=== PATIENT | male | born 1945 | race Caucasian/White ===

== ENCOUNTER → 2018-03-06 13:20 | Outpatient (BNVA) | payer MEDICARE, OTHER, SELFPAY | PROVIDERS: Visit Provider Student in an Organized Health Care Education/Training Program | DX: M17.11 Unilateral primary osteoarthritis, right knee (principal); M17.12 Unilateral primary osteoarthritis, left knee | CPT/HCPCS: 20610; 99202; 99214; J1040 ==

== ENCOUNTER 2018-04-14 08:52 | Outpatient (CLI) | payer MEDICARE, OTHER, SELFPAY ==
[2018-04-14 11:04] LABS: HGB 16.8 g/dL (13.5-17.5); Mean Corp. HGB Concentration 34.3 g/dL (32.0-36.0); Mean Corpuscular Hemoglobin 31.1 pg (27.0-33.0); Mean Corpuscular Volume 90.6 fL (80-95); Mean Platelet Volume 10.2 fL (8.0-11.0); Platelet Count 175 x1000/uL (130-400); RBC 5.41 m/cumm (4.50-6.00); RBC Distribution Width 14.1 % (11.8-14.1); White Blood Cell Count 5.69 k/cumm (4.4-10.8)
[2018-04-14 11:36] LABS: Anion Gap 7.4 mmol/L (3-11); BUN 20 mg/dL (7-18); CO2 30.6 mmol/L (21.0-32.0); CREATININE 1.26 mg/dL (0.70-1.30); Calcium 8.9 mg/dL (8.5-10.1); Chloride 103 mmol/L (98-107); Estimated GFR 55.94 (mL/min/1.73m2); Glucose 105 mg/dL (70-100); Potassium 3.7 mmol/L (3.5-5.1); Sodium 141 mmol/L (136-145)
== END 2018-04-14 09:12 ==
PROVIDERS: PCP Family Medicine; Visit Provider Student in an Organized Health Care Education/Training Program
DX: M25.561 Pain in right knee (principal); M17.11 Unilateral primary osteoarthritis, right knee; I10 Essential (primary) hypertension; K21.9 Gastro-esophageal reflux disease without esophagitis; R56.9 Unspecified convulsions; Z01.818 Encounter for other preprocedural examination
CPT/HCPCS: 36415; 80048; 85027

== ENCOUNTER 2018-04-20 10:27 | Inpatient (IN) | payer MEDICARE, OTHER, SELFPAY ==
[2018-04-20] VITALS (11 sets, daily range): BP systolic 104–154; BP diastolic 54–92; PULSE 64–97; RESP 14–21; TEMP 35.9–37.7; O2SAT 92–100
[2018-04-20] MEDS: Gabapentin 300 MG CAP PO ×2 (11:02→22:15)
[2018-04-20] MEDS: oxyCODONE-CR 10 MG TABCR PO (11:02)
[2018-04-20] MEDS: Acetaminophen 500 MG TAB 1000 MG PO ×2 (11:02→19:20)
[2018-04-20] MEDS: Celecoxib 200 MG CAP 400 MG PO (11:02)
[2018-04-20] MEDS: Lactated Ringers 1,000 ML 80 ML IV ×2 (11:28→15:54)
[2018-04-20] MEDS: Bupivacaine 0.25% Pres-Free 30 ML VIAL (13:28)
[2018-04-20] MEDS: Normal Saline 50 ML (13:28)
[2018-04-20] MEDS: Ketorolac 30 MG/ML VIAL (13:28)
[2018-04-20] MEDS: Bupivacaine LIPOSOME/PF 133 MG/10 ML VIAL IJ (13:44)
[2018-04-20] MEDS: Normal Saline Flush 10 ML SYR IV (16:41)
--- NOTE | 2018-04-20 16:54 | W.PM.OP ---
Date of service: 04/20/18 Time of Service: 16:55 Operative Note DATE OF PROCEDURE: 04/20/18 PRE-OP DIAGNOSIS: Right Knee Arthritis POST-OP DIAGNOSIS: same PROCEDURE: Right Total Knee Arthroplasty with Intraoperative Navigation SURGEON: Lyle Almanzar UNDERGROUND UTILITY LOCATOR: Reema Coles ANESTHESIA: regional and spinal ESTIMATED BLOOD LOSS: 150 PATHOLOGY: none sent TOURNIQUET TIME: 31 COMPLICATIONS: None Patient was transported to: PACU Patient's condition: stable Implants: 1. Depuy Attune Posterior Stabilized Femoral Component, Size 7 2. Depuy Attune Fixed Platform Tibial Component, Size 6 3. Depuy Attune 7 x 8 mm fixed, Stabilized Poly 4. Depuy Attune Patellar Component, Size 35 Indications: I have seen Alonso in clinic for symptoms of knee arthritis, confirmed with radiographic findings. He has exhausted nonoperative methods and was having significant limitations in daily function and desired better function and less pain. I discussed the technical details of a knee replacement. I explained the risks of the procedure to include, but not limited to, bleeding, infection, pain, stiffness, fracture, damage to nerves and vessels, damage to muscles and tendons, loosening, need for repeat procedure, blood clot and cardiopulmonary demise. Despite these risks, Alonso elected to proceed. Findings: There was significant signs of arthritis throughout the knee. Procedure Description: Alonso was greeted in the preoperative holding area where the correct side was identified and marked. The consent was reviewed with the patient and signed. The history and physical was updated. All questions were answered. Preoperative mediacations were administered: Acetaminophen 1000mg, Celebrex 400mg, Gabapentin 300mg, and Oxycontin 10mg. An adductor canal block was then administered by the anesthesia team in the PACU. Alonso was taken back to the operating room. A spinal anesthestic was then administered. The patient was placed into the supine position on the operating room table. A nonsterile tourniquet was placed high onto the leg but only used for cementing. Posts were placed for positioning during the procedure. All bony prominences were well padded. Prophylactic antibiotics in the form of cefazolin were administered. 1g of Tranxemic Acid was given intravenously within 30 minutes of incision. The right leg was then prepped with Chloraprep and draped in a standard fashion with impervious stockinette and extremity drape with Iodine impregnated skin protection. A timeout to confirm correct identity, side and site, procedure, allergies, anesthesia, and medical concerns was performed. With the knee in some flexion, a midline incision was made overlying the knee. Full thickness skin flaps were raised once the extensor mechanism was encountered. These were raised medially and laterally. Any bleeding was controlled with electrocautery. Once the extensor mechanism was fully exposed, a medial parapatellar arthrotomy was performed in a flexed position. All bleeding from the arthrotomy and the geniculate arteries was coagulated. A medial subperiosteal peel was performed with electrocautery to the midcoronal plane. Due to the significant varus deformity the entire medial tibial plateau was exposed. The fat pad was removed while keeping the patellar tendon protected. The anterior distal femur synovium was removed for later visualization. The ACL and PCL were resected and the anterior horn of the lateral meniscus was transected. The knee was then flexed with the patella everted. Large osteophytes from the tibia were removed. Large osteophytes from the femur were removed. A single starting pin was then placed 1cm anterior to the PCL insertion and the notch in the direction of the femoral head. The OrthoAlign device was applied over the pin. It was oriented to be in line with the epicondylar axis and the trochlear groove. It was then pinned into place. The navigation computer was then turned on and calibrated. The distal femur cut was set at 0 degrees varus/valgus and 2.5 degrees flexion. The distal femur cutting guide then was positioned for a 9mm cut. The distal femur was cut with an oscillating saw while protecting the soft tissues. The tibia was then addressed. The OrthoAlign device was placed over the tibial tubercle and medial tibia and secured into position. Once again, OrthoAlign was calibrated and then set for a 0 degree varus/valgus cut and 3 degrees of posterior slope. With this locked into position, the cut thickness stylus was used to assess cut thickness. The medial side, most involved side, was set for a 4mm cut. This was then held in position and pinned into place with 2 additional pins and a cross pin for stability. The medial and lateral collateral ligaments were protected and the cut was performed. With this completed, it was assessed and noted to be of appropriate dimensions. The guide and OrthoAlign was removed. A spacer block was inserted and the knee was brought into extension. The 7 mm spacer block provided full extension, without hyperextension and with stability of both the medial and lateral collateral ligaments was assessed. The pins from the femur and the tibia were then removed. The distal femur was then sized. The anterior stylus was placed onto the lateral ridge of the anterior femur. This indicated a size 6 femur. The external rotation of the guide was adjusted to 3 degrees to match the epicondylar axis, perpendicular to Angelo?s line. The 4-in-1 cutting guide was the placed. The posterior medial femur cut was evaluated and appeared of good thickness. The spacer block was inserted underneath the cutting guide and stability was confirmed in 90 degrees of flexion. An lisandra wing was used to confirm appropriate position of the anterior cut to avoid notching. This cutting guide was ensured to be flush on the cut surface and then pinned into place with headed pins. While protecting the soft tissues, quad tendon, and collateral ligaments, the anterior and posterior cuts were performed with a saw. The central two pins were removed and the posterior and anterior chamfers were cut next. The notch-cutting guide was placed. This was pinned to lateralize the femoral component as much as possible while keeping it flush on the cut surface. This was then pinned into position. A reciprocating saw was used to make the notch cut. A rasp smoothed the cut surfaces. A trial posterior stabilized femoral component was then inserted, impacted down to the cut surfaces, and the lug holes were drilled. A provisional trial tibial component was placed and the knee was brought through range of motion. The polyethylene was trialed until there was good flexion and extension with excellent stability to the medial and lateral collaterals. The patella was tracking without thumbs. The tibial cut surface was fully exposed. The medial and lateral menisci were removed. The tibia was then sized as a 6. The tibia had been previously marked during trialing to correspond to the center of the tibial component to help with rotation. The trial was aligned to this porsche, approximately rotated to the medial 1/3rd of the tibial tubercle. The trial was pinned into place. The tibia was prepared with a reamer and a keel punch. The knee was then brought into extension and the patella was measured as 25 mm. Using the patellar clamp and cut guide, this was resected to a flat surface with at least 13mm of thickness remaining. The size 35 mm patella fit the best. This was oriented and then clamped into position. The lugs were drilled. The trial components were removed. The final components, except for the polyethylene were opened on the back table. The periosteal and capsular tissues, especially posteriorly, around the knee were then systematically injected with a periarticular cocktail consisting of 50cc 0.25% Marcaine, 30mg Ketorolac, 20cc of Exparal and 50cc of injectable saline. The tourniquet was then inflated to 275mmHg. The knee was thoroughly irrigated with a pulse lavage and dried. On the back table, with the implants opened, the cement was mixed. 2 batches of antibiotic laden cement were prepared with vacuum assistance. After the cement was ready a small amount was placed on to the back side of the tibial component at the keel. A small amount was placed onto the posterior flange of the femur. Cement was manual pressurized and impregnated into the cut surface of the tibia. The tibial component was then inserted into the cut surface and impacted into position. Excess cement was removed and the component was reimpacted. Again, excess cement was removed and our attention was then turned to the femur. The femoral cut surface was once again dried and cement was manually impacted into the cut surface. The femoral component was lined with the lug holes and impacted. Excess cement was removed. It was ensured to be down against the cut surface. The trial polyethylene was then inserted and the leg was brought out into full extension for the duration of the cement curing process, approximately 15min. Cement was lastly manually impacted into the cut surface of the patella and the patellar button was clamped into position and held. During this process attention was turned to the gutters of the knee and for all interfaces for any excess cement. After the cement had finally cured, approximately 15min, the clamp was removed from the patella and the knee was taken through range of motion. A size 8 mm polyethylene component provided the best range of motion and stability with less than 2mm gapping with medial and lateral stress and full extension without significant hyperextension. The patella was tracking with a no-thumbs technique. The trial poly was removed and once again the knee was checked for any loose, excess, or errant cement. The poly component was then inserted and impacted into position after cleaning and drying the tibial tray. The capsule was then reapproximated with a No. 1 Vicryl at multiple locations. The capsule was finally closed with a No. 2 Stratafix, barbed suture. The tourniquet was then released and the arthrotomy appeared watertight without significant bleeding. The second dosing of 1g TXA was started. Deep tissues were then reapproximated with 0 Vicryl and 2-0 Vicryl. The skin was closed with a running 3-0 Monocryl in a subcuticular fashion. This was reinforced with skin glue. A Mepilex silver dressing was applied along with a [id number] UZAIR wrap. A CryoCuff was applied. Alonso was transferred to the hospital bed without difficulty an suffering no apparent complication. Alonso has a good prognosis. Physical therapy will start today and without restrictions, weight-bearing as tolerated. Rivaroxaban 10 mg daily will be used for DVT prophylaxis since he has had a previous clot after a pacemaker placement.
--- NOTE | 2018-04-20 16:55 | PT.INIE ---
Date of service: 04/20/18 Time of Service: 16:20 PT Notes Inpatient Physical Therapy Evaluation Date: 04/20/18 Referring Doctor: Dr. Almanzar PT Orders: PT CONSULT: Precautions: Status post right TKA Patient Profile/Admitting Diagnosis: Patient admitted after undergoing right TKA earlier today. PMHX: Bilateral knee OA, status post multiple injections. Hypertension. History of seizures. T-cell lymphoma left lower extremity, status post chemo, radiation, inguinal lymph node resection. Status post pacemaker placement Social History/Home Situation: Patient lives independently in a single level home with 2 steps to enter, no rail. Independent ambulator at baseline, no assistive device. 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 His son is present at time of evaluation, and states that he plans to stay for about a week to assist with care. Equipment Owned/DME: None Subjective: Alonso states that he is feeling well. States that he is able to feel his leg, and is ready to get up to the chair. Objective: General Observation: Resting in bed with IV in right upper extremity, Shakir wrap and Cryo/Cuff in place to right lower extremity, Mora catheter. Mental Status: A and O x3 Pain: 0/10 at rest ROM: Right Upper Extremity: WFL Left Upper Extremity: WFL Right Lower Extremity: Actively patient demonstrates right knee motion 0-90 degrees. Left Lower Extremity: WFL Strength: Right Lower Extremity: Quad strength 3/5 or greater. Functionally he is able to perform SLR, with minor extension lag. Ankle dorsiflexion is 3 out of 5 or greater. Sensation: Intact distally. Patient is able to pump ankles and wiggle toes. Bed Mobility/Transfers: Supine to sit: Supervision Sit to stand: Supervision Stand to sit: Supervision Bed to chair: Contact-guard with FW W, and max cues for technique Gait: Patient is able to ambulate 25 feet with FW W and CG. He requires assistance for management of IV pole. Balance: Static Sitting: Normal Dynamic Sitting: Normal Static Standing: Fair Dynamic Standing: Fair Special Tests: Mobility Limitations Standardized Measure [facility] AM-PAC 6 clicks Basic Mobility Inpatient Short Form: Raw Score: 17 standardized Score: 42.13 CMS Score: 51% Informed Consent/Education: Patient instructed in purpose of PT consult and plan of care. He was oriented to postop packet, and home exercise program. He was able to complete an early therapeutic exercise program, consisting of quadricep setting activities, ankle pumps and straight leg raises. These were all identified in his packet for home completion. He was left sitting up in a chair with lower extremities elevated, Cryo/Cuff in place, call persaud within reach and nursing present. Assessment: Patient is a 72 year old male referred to physical therapy services with the diagnosis of right knee OA, status post right TKA. Patient presents with clinical signs and symptoms consistent with postoperative status, as demonstrated by the following impairment level findings: 1. Decreased right knee range of motion 2. Decreased right lower extremity strength 3. Decreased activity tolerance Impairments are contributing to the following functional limitations: 1. Unable to independently ambulate household distances 2. Unable to manage stairs 3. Fall risk 4. Decreased independence with bed mobility and transfers AMPAC score 51% deficit. Patient is assessed as a Moderate 42308 complexity based on the following: History: 32-year-old male bilateral knee OA, status post right TKA performed earlier today. Patient lives independently, and has multiple comorbidities including history of seizures, history of cancer and pacemaker placement. Examination: Functional limitations as noted above Presentation: Evolving, due to acute postoperative status Decision Making: Moderate complexity Goals: Goals X1 week 1. Supine-Sit : Supervision 2. Sit-Supine : Supervision 3. Sit-Stand : Supervision 4. Stand-Sit : Supervision 5. Bed-Chair : Supervision with FWW 6. Chair-Bed : Supervision with FWW 7. Gait : supervision with FWW x 50' 8. Stairs : ascend and descend x 2 steps, supervision only 9. Independent with home exercise program Plan of Care/Treatment Plan: 1-2x/day, 7 days/week x 1 week. Plan of care has been reviewed with the ASSIGNMENT AGENT providing the service under Physical Therapy direction. Initiate Physical Therapy intervention for strengthening, bed mobility, transfers, gait, stairs, balance training, use of assistive device. DISCHARGE RECOMMENDATIONS: home with FWW TREATMENT CODE/TIME: 30 minutes ([id number]) Maria Luz Montelongo, PT, DPT [facility]
--- NOTE | 2018-04-20 17:08 | IN_ITS ---
Date of service: 04/20/18 Time of Service: 16:20 PT Notes Inpatient Physical Therapy Evaluation Date: 04/20/18 Referring Doctor: Dr. Almanzar PT Orders: PT CONSULT: Precautions: Status post right TKA Patient Profile/Admitting Diagnosis: Patient admitted after undergoing right TKA earlier today. PMHX: Bilateral knee OA, status post multiple injections. Hypertension. History of seizures. T-cell lymphoma left lower extremity, status post chemo, radiation, inguinal lymph node resection. Status post pacemaker placement Social History/Home Situation: Patient lives independently in a single level home with 2 steps to enter, no rail. Independent ambulator at baseline, no assistive device. 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 His son is present at time of evaluation, and states that he plans to stay for about a week to assist with care. Equipment Owned/DME: None Subjective: Alonso states that he is feeling well. States that he is able to feel his leg, and is ready to get up to the chair. Objective: General Observation: Resting in bed with IV in right upper extremity, Shakir wrap and Cryo/Cuff in place to right lower extremity, Mora catheter. Mental Status: A and O x3 Pain: 0/10 at rest ROM: Right Upper Extremity: WFL Left Upper Extremity: WFL Right Lower Extremity: Actively patient demonstrates right knee motion 0-90 degrees. Left Lower Extremity: WFL Strength: Right Lower Extremity: Quad strength 3/5 or greater. Functionally he is able to perform SLR, with minor extension lag. Ankle dorsiflexion is 3 out of 5 or greater. Sensation: Intact distally. Patient is able to pump ankles and wiggle toes. Bed Mobility/Transfers: Supine to sit: Supervision Sit to stand: Supervision Stand to sit: Supervision Bed to chair: Contact-guard with FW W, and max cues for technique Gait: Patient is able to ambulate 25 feet with FW W and CG. He requires assistance for management of IV pole. Balance: Static Sitting: Normal Dynamic Sitting: Normal Static Standing: Fair Dynamic Standing: Fair Special Tests: Mobility Limitations Standardized Measure [facility] AM-PAC 6 clicks Basic Mobility Inpatient Short Form: Raw Score: 17 standardized Score: 42.13 CMS Score: 51% Informed Consent/Education: Patient instructed in purpose of PT consult and plan of care. He was oriented to postop packet, and home exercise program. He was able to complete an early therapeutic exercise program, consisting of quadricep setting activities, ankle pumps and straight leg raises. These were all identified in his packet for home completion. He was left sitting up in a chair with lower extremities elevated, Cryo/Cuff in place, call persaud within reach and nursing present. Assessment: Patient is a 72 year old male referred to physical therapy services with the diagnosis of right knee OA, status post right TKA. Patient presents with clinical signs and symptoms consistent with postoperative status, as demonstrated by the following impairment level findings: 1. Decreased right knee range of motion 2. Decreased right lower extremity strength 3. Decreased activity tolerance Impairments are contributing to the following functional limitations: 1. Unable to independently ambulate household distances 2. Unable to manage stairs 3. Fall risk 4. Decreased independence with bed mobility and transfers AMPAC score 51% deficit. Patient is assessed as a Moderate 70832 complexity based on the following: History: 32-year-old male bilateral knee OA, status post right TKA performed earlier today. Patient lives independently, and has multiple comorbidities including history of seizures, history of cancer and pacemaker placement. Examination: Functional limitations as noted above Presentation: Evolving, due to acute postoperative status Decision Making: Moderate complexity Goals: Goals X1 week 1. Supine-Sit : Supervision 2. Sit-Supine : Supervision 3. Sit-Stand : Supervision 4. Stand-Sit : Supervision 5. Bed-Chair : Supervision with FWW 6. Chair-Bed : Supervision with FWW 7. Gait : supervision with FWW x 50' 8. Stairs : ascend and descend x 2 steps, supervision only 9. Independent with home exercise program Plan of Care/Treatment Plan: 1-2x/day, 7 days/week x 1 week. Plan of care has been reviewed with the CADDIE SUPERVISOR providing the service under Physical Therapy direction. Initiate Physical Therapy intervention for strengthening, bed mobility, transfers, gait, stairs, balance training, use of assistive device. DISCHARGE RECOMMENDATIONS: home with FWW TREATMENT CODE/TIME: 30 minutes ([id number]) Maria Luz Montelongo, PT, DPT [facility]
[2018-04-20] MEDS: Celecoxib 200 MG CAP PO (19:20)
[2018-04-20] MEDS: Potassium Chloride 10 MEQ CAPCR PO (19:20)
[2018-04-20] MEDS: amLODIPine 5 MG TAB PO (22:14)
[2018-04-20] MEDS: Losartan 50 MG TAB 100 MG PO (22:15)
[2018-04-21] MEDS: Lactated Ringers 1,000 ML 80 ML IV (01:07)
[2018-04-21 04:00] VITALS: BP 106/60; PULSE 66; RESP 16; TEMP 37.5; O2SAT 100
[2018-04-21 07:30] VITALS: BP 143/76; PULSE 72; RESP 20; TEMP 37.1; O2SAT 92
[2018-04-21] MEDS: Lactated Ringers 500 ML IV (07:37)
[2018-04-21] MEDS: Celecoxib 200 MG CAP PO (08:10)
[2018-04-21] MEDS: Docusate Sodium 100 MG CAP PO (08:10)
[2018-04-21] MEDS: Hydrochlorothiazide 25 MG TAB 50 MG PO (08:10)
[2018-04-21] MEDS: Acetaminophen 500 MG TAB 1000 MG PO (08:10)
[2018-04-21] MEDS: Allopurinol 300 MG TAB PO (08:11)
[2018-04-21] MEDS: oxyCODONE 5 MG TAB PO (08:11)
[2018-04-21] MEDS: Rivaroxaban 10 MG TABLET PO (08:11)
[2018-04-21] MEDS: Potassium Chloride 10 MEQ CAPCR PO (08:11)
[2018-04-21] MEDS: Omeprazole 20 MG CAPCR PO (08:11)
--- NOTE | 2018-04-21 08:27 | PT.INTREAT ---
Date of service: 04/21/18 Time of Service: 08:27 PT Notes Inpatient Physical Therapy Treatment Note [facility] Date: 04/21/18 PRECAUTIONS: Fall SUBJECTIVE: Alonso reports that he is feeling good this morning, that his is not having any pain. OBJECTIVE: PAIN: No c/o pain BED MOBILITY/TRANSFERS Supine-sit: I with HOB flat Sit-stand: S Stand-sit: S GAIT Assistive Device: FWW Weight bearing: WBAT On R Assist: SBA Distance: 100' x2 Deviation: Cueing for FWW mechanics THEREX: Patient completed a LE strengthening and stabilization program, as per flow sheet. STAIRS: Up/down 3x4 and 2x6 using 1 rail/SPC and a step-to pattern with SBA ASSESSMENT: Patient tolerated session well without complaint. He was able to tolerate a progression in gait distance with FWW support, and SBA. He would benefit from continued gait and transfer training as well as strengthening for improved activity tolerance. PLAN: Continue with PT's POC TREATMENT CODE/TIME: 30 minutes; [id number], [id number]
--- NOTE | 2018-04-21 09:37 | PDOC.CMIN ---
Care Management Initial Assess REASON FOR HOSPITALIZATION:: R Knee DJD PAST MEDICAL HISTORY/PAST SURGICAL HISTORY:: None available per chart review. PREVIOUS FUNCTIONAL STATUS/SOCIAL/FAMILY SUPPORTS:: Alonso resides in [place], [place] in a single level home with 2 steps to enter, no rail. 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 His son, Navjot is a primary support and plans to stay with Alonso for a week to assist with care. Alonso is independent with ADLs at baseline in the community. CURRENT FUNCTIONAL STATUS:: Alonso is sitting up in his chair when CM meets with him. He is pleasant and engaging and shares no concerns at this time. ADVANCE DIRECTIVES:: On file at [facility]; Hollie and Navjot Has patient been provided with information about the portal?: Yes Did the patient sign up for the portal?: No CODE STATUS:: Full Code INSURANCE COVERAGE / FINANCIAL ISSUES:: Medicare, CURRENT HOME/COMMUNITY SERVICES/EQUIPMENT:: 4WW, Shower Stool PRIMARY CARE PHYSICIAN:: Elsa Fuentes POTENTIAL DISCHARGE NEEDS:: PT evaluation, follow up appointment with Dr. Almanzar. PATIENT/FAMILY EDUCATION NEEDS:: Review discharge instructions, discuss Ask Me Three. ANTICIPATED BARRIERS TO DISCHARGE:: None identified. TRANSPORTATION:: Via private vehicle with his son, Alonso. PLAN:: Alonso will return home when ready per MD. He christina follow up with Dr. Almanzar and his plan of care as prescribed including activity restrictions and medication recommendations. He will transport via private vehicle with his son, Alonso.
--- NOTE | 2018-04-21 10:38 | INDS_ITS ---
Date of service: 04/21/18 Time of Service: 10:10 PT Notes Date: 04/21/18 Referring Doctor: Dr. Almanzar PT Orders: PT CONSULT: Status post right TKA Precautions: fall, standard Treatment Dates: 04/20/18 - 04/21/18 Patient Profile/Admitting Diagnosis: Patient admitted after undergoing right TKA 04/20/18. He's participated in 3 PT sessions over the past 2 days, with improvements in mobility and safety. PMHX: Bilateral knee OA, status post multiple injections. Hypertension. History of seizures. T-cell lymphoma left lower extremity, status post chemo, radiation, inguinal lymph node resection. Status post pacemaker placement Social History/Home Situation: Patient lives independently in a single level [facility] with 2 steps to enter, no rail. Independent ambulator at baseline, no assistive device. 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 His son is present at time of evaluation, and states that he plans to stay for about a week to assist with care. Equipment Owned/DME: None Subjective: Alonso states that he is feeling good. He's hoping to go to a basketball game this evening. Objective: General Observation: Resting in bed with IV in right upper extremity, Shakir wrap and Cryo/Cuff in place to right lower extremity, Mora catheter. Mental Status: A and O x3 Pain: 0/10 at rest ROM: Right Upper Extremity: WFL Left Upper Extremity: WFL Right Lower Extremity: Actively patient demonstrates right knee motion -10-100 degrees. Left Lower Extremity: WFL Strength: Right Lower Extremity: Quad strength 3/5 or greater. Functionally he is able to perform SLR, with minor extension lag. Ankle dorsiflexion is 3 out of 5 or greater. Sensation: Intact distally. Patient is able to pump ankles and wiggle toes. Bed Mobility/Transfers: Supine to sit: independent Sit to stand: independent Stand to sit: independent Bed to chair: supervision with rollator walker, WBAT right Gait: Patient is able to ambulate 100'x2 with 4W W and CG-S. He requires assistance for management of IV pole. Stairs: Patient manages therapeutic stairs (4 inches x3, 6 inches x2) ascending and descending with single rail, single-point cane and step to gait pattern, with supervision only. Balance: Static Sitting: Normal Dynamic Sitting: Normal Static Standing: good Dynamic Standing: Fair Treatment: Today's session consisted of gait and stair training, with patient transition to use of a Rollator walker, which he owns at home. He was instructed in a close chain strengthening program, and we also reviewed his home program activities, which have all been marked in his postop packet. We reviewed knee extension stretching with use of Cryo/Cuff for added weight, which patient will complete periodically throughout the day. Full program can be found noted in his flowsheet. Assessment: Patient is a 72 year old male referred to physical therapy services with the diagnosis of right knee OA, status post right TKA. He has made significant gains in his safety and mobility since admission. He was able to effectively transition to use of a Rollator walker with excellent gait patterns and safety demonstrated. He is also able to manage stairs with supervision only. At this point all rehab goals have been met, and patient is appropriate for transition back home with assistance from his son. Goals: Goals X1 week 1. Supine-Sit : Supervision (MET) 2. Sit-Supine : Supervision(MET) 3. Sit-Stand : Supervision(MET) 4. Stand-Sit : Supervision(MET) 5. Bed-Chair : Supervision with FWW(MET) 6. Chair-Bed : Supervision with FWW(MET) 7. Gait : supervision with FWW x 50'(MET) 8. Stairs : ascend and descend x 2 steps, supervision only(MET) 9. Independent with home exercise program (MET) Plan of Care/Treatment Plan: DC from PT services in acute care setting DISCHARGE RECOMMENDATIONS: Home. No equipment needs. TREATMENT CODE/TIME: 25 minutes (33006, [id number]) Maria Luz Montelongo, PT, DPT [facility]
--- NOTE | 2018-04-21 11:36 | W.PM.DS.N ---
Date of service: 04/21/18 Time of Service: 11:36 DS: Diagnosis Discharge Diagnosis (1) Right knee DJD: Status: Chronic Discharge Plan Disposition Patient Disposition: HOME Condition: Good Discharge Details Reason For Visit: R KNEE DJD Admit Date/Time: 04/20/18 10:27 Admit Provider: Lyle Almanzar Attending Provider: Lyle Almanzar Primary Care Provider: Elsa Fuentes [facility] Course Hospital Course: Patient was admitted to the medical/surgical floor following the procedure. It was tolerated well without any notable medical, surgical, or anesthetic complications. Mobilization began postoperatively. The chan catheter was removed and voiding spontaneously. His initial urine output was a little sluggish but improved with a 500 cc bolus. Vitals were stable. Physical therapy worked with the patient and was cleared for discharge home. No acute medical issues. Home Meds and New Rx's Prescriptions: New celecoxib 200 mg capsule 200 mg PO BID PRN (Reason: pain) Qty: 60 RF: 1 acetaminophen 500 mg capsule 1,000 mg PO Q8H PRN (Reason: pain) Qty: 90 RF: 0 oxycodone 5 mg tablet 5 mg PO Q4H Qty: 14 RF: 0 Xarelto 10 mg Tablet 10 mg PO DAILY Qty: 14 RF: 0 Continued potassium chloride 10 mEq Capsule, Extended Release PO BID RF: 0 hydrochlorothiazide 50 mg Tablet 50 mg PO DAILY RF: 0 levetiracetam [Keppra] 500 mg Tablet 500 mg PO BID RF: 0 amlodipine 5 mg Tablet 5 mg PO HS RF: 0 allopurinol 300 mg Tablet 300 mg PO DAILY RF: 0 losartan 100 mg Tablet 100 mg PO HS RF: 0 Prilosec OTC 20 mg Tablet,Delayed Release (Dr/Ec) 20 mg PO DAILY RF: 0 Centrum Silver Men 300-600-300 mcg Tablet 1 tab PO DAILY RF: 0 Discontinued aspirin [Aspir-81] 81 mg Tablet,Delayed Release (Dr/Ec) 81 mg PO HS RF: 0 Discharge Instructions Additional Instructions: Dr. Almanzar?s Total Knee Discharge Instructions Activity: The most important activity is to walk. You should try to take short walks a few times a day. It is important that when resting you work on keeping the knee straight. Avoid putting a pillow behind the knee as this will encourage flexion. Work on range of motion exercises as provided by Physical Therapy. - Start outpatient physical therapy within 2 weeks. - You should wear the EVE hose on both legs for 4 weeks. Dressing: Keep the surgical dressing in place for at least one week. After the first week it may be removed and replace with light gauze and tape or nothing. It may get wet after 3 days but avoid soaking the dressing. If it gets wet, just lightly pat dry. Medications: - You should take Tylenol and anti-inflammatory (Celebrex) as your primary pain control medications - You have been prescribed a stronger pain medication (Oxycodone) for breakthrough pain, take as needed as prescribed. - You will be taking Rivaroxaban once a day for DVT prevention unless instructed otherwise. - If you have constipation you should take Colace or Miralax (both [id number]). It takes most people 3-4 days to have a bowel movement. Follow-up: 2 weeks Referrals: Lyle Almanzar MD [ [facility] STAFF PHYSICIAN] - Activity:: Activity as Tolerated Equipment/Supplies:: Walker Diet:: Normal Diet Discharge Orders Discharge Orders: Discharge Order (Routine); Ordered 04/21/18 Ordered By: Lyle Almanzar DS: Data Vitals/I&O Vitals and I&O: Vital Signs Temperature 37.1 C 04/21/18 07:30 Temperature Source Tympanic 04/21/18 07:30 Pulse 72 04/21/18 07:30 Pulse Rhythm Regular 04/21/18 00:05 Respiratory Rate 20 04/21/18 07:30 Respiratory Effort 04/21/18 00:05 Respiratory Depth Normal 04/21/18 00:05 Respiratory Pattern Normal 04/21/18 00:05 Blood Pressure 143/76 H 04/21/18 07:30 Pulse Oximetry 92 L 04/21/18 07:30 Respiratory End-tidal CO2 30 04/20/18 15:55 Oxygen Delivery Method Room Air 04/21/18 07:30 Oxygen Flow Rate 0 04/21/18 07:30 Pain Level 2 04/21/18 08:11 Intake & Output 04/20/18 04/20/18 04/21/18 11:59 23:59 11:59 Intake Total 1674.667 / 0921.759 1103.666 / 1318.666 Output Total 400 / 400 850 / 850 Balance 1274.667 / 1274.667 468.666 / 468.666 Weight 104.6 kg Intake: IV 1194.667 / 1194.667 838.666 / 838.666 Oral 480 / 480 480 / 480 Output: Urine 250 / 250 850 / 850 Estimated Blood Loss 150 / 150 Other: Urine Color Dark Alicia Dark Alicia Urine Appearance Clear Clear Comment post bolus Emesis Description None PFSH Social History Smoking/Tobacco Use Status: Never
[2018-04-21 11:39] VITALS: BP 149/76; PULSE 67; RESP 18; TEMP 36.3; O2SAT 93
--- NOTE | 2018-04-21 18:20 | INITIAL_ITS ---
Care Management Initial Assess REASON FOR HOSPITALIZATION:: R Knee DJD PAST MEDICAL HISTORY/PAST SURGICAL HISTORY:: None available per chart review. PREVIOUS FUNCTIONAL STATUS/SOCIAL/FAMILY SUPPORTS:: Alonso resides in [place], [place] in a single level home with 2 steps to enter, no rail. 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 His son, Navjot is a primary support and plans to stay with Alonso for a week to assist with care. Alonso is independent with ADLs at baseline in the community. CURRENT FUNCTIONAL STATUS:: Alonso is sitting up in his chair when CM meets with him. He is pleasant and engaging and shares no concerns at this time. ADVANCE DIRECTIVES:: On file at [facility]; Hollie and Navjot Has patient been provided with information about the portal?: Yes Did the patient sign up for the portal?: No CODE STATUS:: Full Code INSURANCE COVERAGE / FINANCIAL ISSUES:: Medicare, CURRENT HOME/COMMUNITY SERVICES/EQUIPMENT:: 4WW, Shower Stool PRIMARY CARE PHYSICIAN:: Elsa Fuentes POTENTIAL DISCHARGE NEEDS:: PT evaluation, follow up appointment with Dr. Almanzar. PATIENT/FAMILY EDUCATION NEEDS:: Review discharge instructions, discuss Ask Me Three. ANTICIPATED BARRIERS TO DISCHARGE:: None identified. TRANSPORTATION:: Via private vehicle with his son, Alonso. PLAN:: Alonso will return home when ready per MD. He christina follow up with Dr. Neptali talavera and his plan of care as prescribed including activity restrictions and medication recommendations. He will transport via private vehicle with his son, Alonso.
== END 2018-04-21 13:43 | disposition home or self-care (01) | DRG 470 ==
LOC: PDS 10:28 → MS 04-21 00:01
PROVIDERS: Admitting Provider Student in an Organized Health Care Education/Training Program; PCP Family Medicine; Visit Provider Student in an Organized Health Care Education/Training Program
PROC: 0SRC0J9 Replacement of Right Knee Joint with Synthetic Substitute, Cemented, Open Approach (ICD-10-PCS; CPT 27447; principal; 2018-04-20 12:00)
DX: M17.11 Unilateral primary osteoarthritis, right knee (principal); Z96.651 Presence of right artificial knee joint; I10 Essential (primary) hypertension; M21.061 Valgus deformity, not elsewhere classified, right knee; G47.33 Obstructive sleep apnea (adult) (pediatric)
CPT/HCPCS: 27447; 20985; 76942; 97110; 97162; 97530; NC; J0690; J1885; J2250; J2405; J3010

== ENCOUNTER 2018-05-08 11:16 | Outpatient (CLI) | payer MEDICARE, OTHER, SELFPAY ==
--- NOTE | 2018-05-08 11:08 | DI.RAD_ITS ---
SYMPTOM/DIAGNOSIS: F/U RT TKA RIGHT KNEE AND LEG LENGTH EXAMINATION: There are again seen post surgical changes of a right total knee replacement. The orthopedic hardware appears in good position. No evidence of hardware failure is seen. In the left knee, there is mild narrowing in the medial femoral tibial joint space. The right lower extremity measures 94.8 cm. The left lower extremity measures 96.1 cm. IMPRESSION: Stable right TKR. Mild degenerative changes of the left knee.
== END 2018-05-08 11:36 ==
PROVIDERS: PCP Family Medicine; Referring Provider Family Medicine; Visit Provider Student in an Organized Health Care Education/Training Program
DX: M17.11 Unilateral primary osteoarthritis, right knee (principal); Z96.651 Presence of right artificial knee joint; M17.12 Unilateral primary osteoarthritis, left knee; Z47.1 Aftercare following joint replacement surgery
CPT/HCPCS: 73560; 77073

== ENCOUNTER → 2018-05-24 14:23 | Outpatient (BNVA) | payer MEDICARE, OTHER, SELFPAY | PROVIDERS: PCP Family Medicine; Referring Provider Family Medicine; Visit Provider Student in an Organized Health Care Education/Training Program | DX: R69 Illness, unspecified (principal) ==

== ENCOUNTER → 2018-07-26 07:52 | Outpatient (BNVA) | payer MEDICARE, OTHER, SELFPAY | PROVIDERS: PCP Family Medicine; Referring Provider Family Medicine; Visit Provider Student in an Organized Health Care Education/Training Program | DX: M17.12 Unilateral primary osteoarthritis, left knee (principal); Z96.652 Presence of left artificial knee joint; Z47.1 Aftercare following joint replacement surgery | CPT/HCPCS: 99213 ==

== ENCOUNTER 2018-08-23 08:50 | Outpatient (CLI) | payer MEDICARE, OTHER, SELFPAY ==
--- NOTE | 2018-08-23 08:43 | DI.RAD_ITS ---
SYMPTOM/DIAGNOSIS: ANT KNEE PAIN, ? PATELLA ALIGNMENT RIGHT KNEE: A single sunrise view of the right knee was obtained as requested by the ordering physician. Comparison is 05/08/18. The patient has a right total knee replacement and the orthopedic hardware appears well aligned. The patella appears well aligned. The soft tissues are unremarkable.
== END 2018-08-23 09:10 ==
PROVIDERS: PCP Family Medicine; Referring Provider Family Medicine; Visit Provider Student in an Organized Health Care Education/Training Program
DX: T84.84XA Pain due to internal orthopedic prosthetic devices, implants and grafts, initial encounter (principal); Z96.651 Presence of right artificial knee joint; M25.561 Pain in right knee; Z47.1 Aftercare following joint replacement surgery
CPT/HCPCS: 99213; 73560

== ENCOUNTER 2018-09-29 10:11 | Outpatient (CLI) | payer MEDICARE, OTHER, SELFPAY ==
--- NOTE | 2018-09-29 09:41 | DI.RAD_ITS ---
SYMPTOMS/DIAGNOSIS: PAIN RIGHT KNEE: Four views. Comparison is 08/23/18 and 05/08/18. There are again seen postsurgical changes of a right total knee replacement. The femoral and tibial components of the orthopedic hardware appear stable. There is now a moderately displaced fracture of the lateral aspect of the patella. There is soft tissue swelling anteriorly. Vascular calcifications are present. IMPRESSION: Moderately displaced patellar fracture.
== END 2018-09-29 10:31 ==
PROVIDERS: Referring Provider Family Medicine; Visit Provider Student in an Organized Health Care Education/Training Program
DX: M25.561 Pain in right knee (principal); Z96.651 Presence of right artificial knee joint
CPT/HCPCS: 99213; 73564

== ENCOUNTER 2018-10-16 13:49 | Outpatient (CLI) | payer MEDICARE, OTHER, SELFPAY ==
--- NOTE | 2018-10-16 15:45 | DI.CT_ITS ---
SYMPTOM/DIAGNOSIS: EVAL RT PATELLA ABNORMALITY, ? FACTURE CT RIGHT KNEE: Multiple contiguous axial images of the right knee were obtained. Sagittal and coronal reformatted images were evaluated on the Siemens work station. There is artifact from the patient's total knee replacement. There is a comminuted fracture involving the superior lateral aspect of the patella. There is mild displacement of the fracture fragments noted. The fracture does appear to extend in to the superior lateral aspect of the orthopaedic hardware on the patella. The femoral and tibial components of the orthopaedic hardware appear intact. The distal femur and proximal tibia and proximal fibula are intact. No acute fracture, dislocation, lytic or sclerotic lesion is seen. There is a moderate suprapatellar joint effusion. There is mild edema seen in the soft tissues anteriorly. No focal fluid collection is seen in the soft tissues. IMPRESSION: Comminuted mildly displaced fracture of the superior lateral aspect of the patella. It does appear to involve the superior lateral aspect of the patellar component of the total knee replacement.
== END 2018-10-16 14:09 ==
PROVIDERS: Visit Provider Student in an Organized Health Care Education/Training Program
DX: M25.561 Pain in right knee (principal); S82.041A Displaced comminuted fracture of right patella, initial encounter for closed fracture; Z96.651 Presence of right artificial knee joint; R60.0 Localized edema; M25.461 Effusion, right knee; X58.XXXA Exposure to other specified factors, initial encounter
CPT/HCPCS: 99213; 73700

== ENCOUNTER → 2018-10-16 14:54 | Outpatient (BNVA) | payer MEDICARE, OTHER, SELFPAY | PROVIDERS: Referring Provider Family Medicine; Visit Provider Student in an Organized Health Care Education/Training Program | DX: R69 Illness, unspecified (principal) ==

== ENCOUNTER 2018-10-27 10:29 | Day surgery (SDC) | payer MEDICARE, OTHER, SELFPAY ==
[2018-10-27 10:51] VITALS: BP 145/92; PULSE 84; RESP 16; TEMP 36.3; O2SAT 96
[2018-10-27] MEDS: Lactated Ringers 1,000 ML 80 ML IV (11:23)
[2018-10-27] MEDS: Celecoxib 200 MG CAP 400 MG PO (11:23)
[2018-10-27] MEDS: Gabapentin 300 MG CAP PO (11:24)
[2018-10-27] MEDS: Acetaminophen 500 MG TAB 1000 MG PO (11:24)
[2018-10-27] MEDS: oxyCODONE-CR 10 MG TABCR PO (11:24)
--- NOTE | 2018-10-27 11:39 | W.PREOPHP ---
Date of service: 10/27/18 Time of Service: 11:39 Assessment and Plan (1) History of total right knee replacement (TKR): Current visit: No Status: Chronic Alonso is a 73-year-old who has suffered a patella fracture in the setting of a total knee replacement. This was nontraumatic in nature and it does not seem to compromise extensor mechanism. He has an intact straight leg raise and can do so against resistance. There is notable crepitus and restriction with motion. Therefore, I recommended operative intervention. I had a long discussion with Alonso in regards to arthroscopic versus open treatment. Open treatment would allow us the possibility of repairing these bony fragments and also doing a polyethylene exchange if we needed to for his range of motion. However, this would also impart a longer recovery process with greater risk of infection. The arthroscopic procedure would allow us to get him moving more quickly. We can still perform a synovectomy arthroscopically with manipulation. We could then remove those bony fragments as they do not seem to compromise extensor mechanism. If there was any concern about the extensor mechanism integrity at the time of the surgery we would abort and perform an open surgery. I reviewed the risk of the procedure to include bleeding, infection, pain, stiffness, damage to nerves and vessels, damage to muscle tendons, patellar component loosening, weakness, blood clot. Despite these risk, he elects to proceed. (2) Right patella fracture: Current visit: No Status: Acute Qualifiers: Encounter type: initial encounter Fracture type: closed Fracture morphology: comminuted Fracture alignment: displaced Qualified Code(s): S82.041A - Displaced comminuted fracture of right patella, initial encounter for closed fracture (3) Stiffness of right knee: Current visit: No Status: Acute History of Present Illness Chief Complaint: Right Knee Pain and Stiffness Narrative: Alonso is a 73-year-old who is status post right knee replacement in March 2018. He did well initially. He did still some stiffness. However, he is able to increase activities. There is no specific trauma but he started having a clicking sensation about the right knee which is also associate with significant swelling and worsening stiffness. He was seen in the office and an x-ray showed what appeared to be bony fragmentation around the superolateral aspect of patella. CT scan showed that it was a displaced fracture of the superolateral corner of the patella. His straight leg raise is still intact. He was limited by persistent pain and dysfunction. He denies any numbness or tingling. He denies any specific trauma. He denies any notable giving way or weakness. Review of Systems Review of Systems All systems reviewed & are unremarkable except as noted in HPI and below PFSH Medical History GERD (gastroesophageal reflux disease) (Chronic) Gout (Chronic) High cholesterol (Chronic) Hypertension (Chronic) JEIMY on CPAP (Chronic) Osteoarthritis (Chronic) Seizure disorder (Chronic) Syncope (Chronic) Surgical History History of appendectomy (Chronic) History of cardiac catheterization (Chronic) History of cholecystectomy (Chronic) History of hernia repair (Chronic) History of permanent cardiac pacemaker placement (Chronic) History of total right knee replacement (Acute) Hx of surgical procedure (Acute) Social History Smoking/Tobacco Use Status: Never Alcohol Intake: current Alcohol Intake frequency: holidays/special occasions only Alcohol type: beer and hard liquor Drug use: Never Substance use type: does not use Do you feel safe at home: Yes Additional Social history: lives alone, son close by [facility] Home Medications Medication Instructions Recorded Confirmed Type allopurinol 300 mg PO DAILY 04/14/18 10/27/18 History amlodipine 5 mg PO HS 04/14/18 10/27/18 History hydrochlorothiazide 50 mg PO DAILY 04/14/18 10/27/18 History levetiracetam [Keppra] 500 mg PO BID 04/14/18 10/26/18 History losartan 100 mg PO HS 04/14/18 10/27/18 History potassium chloride 10 meq PO BID 04/14/18 10/27/18 History omeprazole 20 mg PO DAILY 10/26/18 10/26/18 History aspirin [Aspir-81] 81 mg PO HS PRN 10/27/18 10/27/18 History naproxen sodium [Aleve] 220 mg PO PRN PRN 10/27/18 10/27/18 History Allergies Allergy/AdvReac Type Severity Reaction Status Date / Time No Known Allergies Allergy Verified 10/16/18 14:59 Exam Const General: cooperative, healthy appearing, comfortable, no acute distress and well developed Nutritional Appearance: average body habitus Orientation: alert, awake and oriented x3 Resp Effort & Inspection: normal respiratory effort Auscultation: clear to auscultation bilaterally Cardio Rate: regular rate Rhythm: regular rhythm Extrem Other: Well-healed incision about the right leg. There is mild swelling. Audible and palpable crepitus with any pressure to the patella and with range of motion. Active range of motion is about 10 to 115 degrees. Passively, he can within 5 degrees of extension. There is no palpable defect. He has 5 out of 5 knee extension strength. The knee is stable to varus and valgus stress. No signs of infection. Results Imaging Imaging Studies: CT scan of the right knee demonstrates a comminuted fracture about the superolateral patella. It does undermine the patella button by few millimeters. It is displaced superiorly and laterally. There appear to be 3 main fragments. Last Vital Signs Temp 36.3 C L 10/27/18 10:51 Pulse 84 10/27/18 10:51 Resp 16 10/27/18 10:51 BP 145/92 H 10/27/18 10:51 Pulse Ox 96 10/27/18 10:51
--- NOTE | 2018-10-27 12:05 | PDOC.DSDIS_ITS ---
Discharge Plan Disposition Patient Disposition: HOME Condition: Good Discharge Details Reason For Visit: Right Patella Fracture Attending Provider: Lyle Almanzar Primary Care Provider: Elsa Fuentes Home Meds and New Rx's Prescriptions: New hydrocodone-acetaminophen 5-325 mg tablet 1 tab PO Q6H PRN PRN (Reason: pain) Qty: 8 RF: 0 acetaminophen 500 mg tablet 500 mg PO Q6H PRN PRN (Reason: pain) Qty: 60 RF: 3 Continued omeprazole 20 mg Capsule,Delayed Release(Dr/Ec) 20 mg PO DAILY RF: 0 aspirin [Aspir-81] 81 mg Tablet,Delayed Release (Dr/Ec) 81 mg PO HS PRNRF: 0 potassium chloride 10 mEq Capsule, Extended Release 10 meq PO BID RF: 0 hydrochlorothiazide 50 mg Tablet 50 mg PO DAILY RF: 0 levetiracetam [Keppra] 500 mg Tablet 500 mg PO BID RF: 0 amlodipine 5 mg Tablet 5 mg PO HS RF: 0 allopurinol 300 mg Tablet 300 mg PO DAILY RF: 0 losartan 100 mg Tablet 100 mg PO HS RF: 0 Changed naproxen sodium [Aleve] 220 mg Capsule 220 mg PO BID PRN PRNQty: 60 RF: 0 Discharge Instructions Additional Instructions: Activity: You should begin moving as soon as possible. You may work on flexion but also equally maintain extension. You may bear weight as tolerated, using crutches only for support/comfort. You should apply ice to help with swelling and elevate when possible (especially in the first few days). Dressings: The knee dressing may come down after 48 hours. You may shower and get the wound wet at that time. You should keep the wounds covered with a bandaid until follow-up. Medications: - Rarely does this require any stronger pain medications. You do have some Hydrocodone called in for breakthrough pain. - Recommend to take up to 1000mg of Acetaminophen (Tylenol) and 600mg of Ibuprofen (Advil) every 8 hours as needed. Follow-up: 7-10 days Referrals: Lyle Almanzar MD [ [facility] STAFF PHYSICIAN] - Equipment/Supplies: Partial Weight Bearing Crutches Activity:: Elevate Remove Dressings/Wound Care:: 48 hours Shower/Bathe:: 48 hours Diet:: As Tolerated Discharge Orders Discharge Orders: Discharge Order (Routine); Ordered 10/27/18 Ordered By: Lyle Almanzar DS: Diagnosis Discharge Diagnosis (1) History of total right knee replacement (TKR): Status: Chronic (2) Right patella fracture: Status: Acute (3) Stiffness of right knee: Status: Acute
[2018-10-27] MEDS: ceFAZolin 2 GM/50 ML BAG IVPB (12:13)
[2018-10-27] MEDS: Bupivacaine 0.5% Pres-Free 30 ML VIAL (12:33)
[2018-10-27 13:30] VITALS: BP 94/44; PULSE 64; RESP 15; TEMP 36.6; O2SAT 95
[2018-10-27 13:35] VITALS: BP 105/46; PULSE 66; RESP 16; TEMP 36.6; O2SAT 96
[2018-10-27 13:40] VITALS: BP 129/64; PULSE 76; RESP 18; TEMP 36.6; O2SAT 97
[2018-10-27 13:55] VITALS: BP 123/60; PULSE 80; RESP 20; TEMP 36.8; O2SAT 96
[2018-10-27 14:35] VITALS: BP 147/78; PULSE 74; RESP 17; TEMP 36.7; O2SAT 97
--- NOTE | 2018-10-30 09:57 | ROE_ITS ---
DATE OF SURGERY: October 27, 2018 PREOPERATIVE DIAGNOSIS: Right knee periprosthetic patellar fracture and postoperative stiffness afte r knee replacement. POSTOPERATIVE DIAGNOSIS: Same. SURGERY: Right knee arthroscopic synovectomy with removal of bony fragment with manipulation. SURGEON: Lyle Almanzar M.D. ANESTHESIA: General. BLOOD LOSS: None. FINDINGS: There was a piece off the superolateral patella which was loose. It was easily impinging between the patella and the lateral aspect of the femur. It was removed. There was also some two pi eces of cement, which were also removed. The patella component was also probed, and while there was some exposed base of the patella, the lug was not visible and it also was well-attached to the remain ing patella. Quadriceps mechanism was investigated from within the joint and was not violate. Aggre ssive synovectomy was performed around the patella and mobilization in flexion and extension was perf ormed after administration of succinylcholine. COMPLICATIONS: None. DISPOSITION: The patient was awakened from anesthesia and taken to the PACU in a stable condition. INDICATION FOR PROCEDURE: Alonso is a 73-year-old who had a knee replacement in March 2018. He was doing well but then started developing a clunking sensation as well as repeated effusions. He was s een in the office where there was this notable prominence to the superolateral aspect of the patella. X-rays showed a displaced fracture involving just the superolateral corner of the patella. He was still able to straight leg raise against resistance. He had no weakness. He simply had pain and eff usions. Given this constellation of symptoms, I did recommend operative treatment. I discussed the two options, which would be an open procedure to try to fix this piece and evaluate directly the dozier llar component. The other option would be an arthroscopic procedure focused primarily on just removi ng this impeding fracture, given that he can straight leg raise, and proceeding, knowing that the pat ellar button may become an issue in the future. He preferred to proceed with the latter option to en courage fast recovery. He also had some stiffness, which he had worked with physical therapy. He wa s tight in flexion and extension therefore I recommended manipulation after synovectomy in the Operat ing Room. PROCEDURE DESCRIPTION: Alonso was greeted in the preoperative holding area. His identity was confirm ed and the correct side was identified and marked. The consent was reviewed with the patient and sig isaura. The patient was given a preoperative cocktail of Celebrex, Tylenol, and OxyContin. After admin istration of the cocktail he was taken back to the Operating Room. He was placed in the supine posit ion. A general anesthetic was administered. All bony prominences were well-padded. The right leg w as then prepped with ChloraPrep and draped in a standard fashion. Prophylactic antibiotics in the fo rm of Cefazolin were given. A time-out was performed for safe surgery. A standard lateral portal was then made. This was taken down into the knee. We had excellent visual ization. There was notable scarring around the patella. A superolateral portal was then established with spinal needle localization. Using electrocautery and a shaver I was able to debride the synovi um around the patella. A synovectomy was performed in this area, all the way into the anterior aspec t of the knee. I also recreated the suprapatellar pouch. A probe was then used to probe the superol ateral aspect of the patella and there was a large bony fragment which was seen. It was outside of t he patellar button realm, but still attached superiorly to some fibers of the retinaculum of the quad riceps tendon. Using electrocautery I then stayed with the device pointing towards the bone to eleva te it off of the retinaculum. A series of instruments were then used to help pry it away and then it was removed from the knee. There were two loose pieces of cement which were also removed. A synove ctomy was then performed around this area. A probe was placed inside the defect of the bone behind t he patellar button. It did not gap away from the bone. There was about 2 mm of exposed patellar but ton base. A synovectomy was performed again around the patella. After this was completed the arthr oscopic device was removed. Succinylcholine was administered by Anesthesia and manipulation fernando vasquez. His preoperative starting position was about 10 degrees to 105 degrees. After manipulation he wa s just short of 5 degrees and to about 125 degrees of flexion. The wounds were closed with #3-0 Nylo n. There were then dressed with Xeroform, 4x4s', ABD, Kerlix and UZAIR wrap. A Cryo-Cuff was applied. He was then transferred back to the PACU in a stable condition.
== END 2018-10-27 15:15 | disposition home or self-care (01) ==
PROVIDERS: PCP Family Medicine; Visit Provider Student in an Organized Health Care Education/Training Program
PROC: (CPT 29870; 2018-10-27 12:00)
DX: M97.11XA Periprosthetic fracture around internal prosthetic right knee joint, initial encounter (principal); M84.48XA Pathological fracture, other site, initial encounter for fracture; M25.661 Stiffness of right knee, not elsewhere classified; Z96.651 Presence of right artificial knee joint; I10 Essential (primary) hypertension; G47.33 Obstructive sleep apnea (adult) (pediatric)
CPT/HCPCS: 29874; 27570; NC; J0690

== ENCOUNTER → 2018-11-03 10:41 | Outpatient (BNVA) | payer MEDICARE, OTHER, SELFPAY | PROVIDERS: PCP Family Medicine; Referring Provider Family Medicine; Visit Provider Student in an Organized Health Care Education/Training Program | DX: S82.041A Displaced comminuted fracture of right patella, initial encounter for closed fracture (principal); X58.XXXA Exposure to other specified factors, initial encounter ==

== ENCOUNTER → 2018-11-06 09:09 | Outpatient (BNVA) | payer MEDICARE, OTHER, SELFPAY | PROVIDERS: PCP Family Medicine; Referring Provider Family Medicine; Visit Provider Student in an Organized Health Care Education/Training Program | DX: S82.041A Displaced comminuted fracture of right patella, initial encounter for closed fracture (principal); X58.XXXA Exposure to other specified factors, initial encounter; Z96.651 Presence of right artificial knee joint ==

== ENCOUNTER 2018-12-04 13:08 | Outpatient (CLI) | payer MEDICARE, OTHER, SELFPAY ==
--- NOTE | 2018-12-04 12:59 | DI.RAD_ITS ---
SYMPTOMS/DIAGNOSIS: RIGHT ANTERIOR PATELLA PAIN RIGHT KNEE: The patient is status post TKA, the prosthesis intact and in good position. There has been no interval change when compared with the prior examination of 09/29/18.
== END 2018-12-04 13:28 ==
PROVIDERS: PCP Family Medicine; Visit Provider Student in an Organized Health Care Education/Training Program
DX: M25.561 Pain in right knee (principal); Z96.651 Presence of right artificial knee joint; M25.661 Stiffness of right knee, not elsewhere classified; S82.041A Displaced comminuted fracture of right patella, initial encounter for closed fracture; X58.XXXA Exposure to other specified factors, initial encounter
CPT/HCPCS: 73564

== ENCOUNTER 2019-01-25 12:55 | Outpatient (CLI) | payer MEDICARE, OTHER, SELFPAY ==
[2019-01-25 14:19] LABS: HCT 45.5 % (40.0-50.0); HGB 15.1 g/dL (13.5-17.5); Mean Corp. HGB Concentration 33.2 g/dL (32.0-36.0); Mean Corpuscular Hemoglobin 29.7 pg (27.0-33.0); Mean Corpuscular Volume 89.4 fL (80-95); Mean Platelet Volume 9.8 fL (8.0-11.0); Platelet Count 243 x1000/uL (130-400); RBC 5.09 m/cumm (4.50-6.00); RBC Distribution Width 13.7 % (11.8-14.1); White Blood Cell Count 6.72 k/cumm (4.4-10.8)
[2019-01-25 14:38] LABS: Anion Gap 8.9 mmol/L (3-11); BUN 19 mg/dL (7-18); CO2 27.1 mmol/L (21.0-32.0); CREATININE 1.15 mg/dL (0.70-1.30); Calcium 9.2 mg/dL (8.5-10.1); Chloride 103 mmol/L (98-107); Glucose 106 mg/dL (70-100); Potassium 3.9 mmol/L (3.5-5.1); Sodium 139 mmol/L (136-145)
== END 2019-01-25 13:15 ==
PROVIDERS: PCP Family Medicine; Visit Provider Student in an Organized Health Care Education/Training Program
DX: M25.562 Pain in left knee (principal); M17.12 Unilateral primary osteoarthritis, left knee; Z01.818 Encounter for other preprocedural examination; Z01.812 Encounter for preprocedural laboratory examination
CPT/HCPCS: 36415; 80048; 85027

== ENCOUNTER 2019-01-30 06:06 | Inpatient (IN) | payer MEDICARE, OTHER, SELFPAY ==
[2019-01-25 13:03] VITALS: BP 145/78; PULSE 87; RESP 18; TEMP 37.3; O2SAT 96
[2019-01-30] VITALS (13 sets, daily range): BP systolic 112–150; BP diastolic 43–83; PULSE 68–92; RESP 12–27; TEMP 36.5–37; O2SAT 92–96
[2019-01-30] MEDS: Acetaminophen 500 MG TAB 1000 MG PO ×2 (06:52→13:29)
[2019-01-30] MEDS: Gabapentin 300 MG CAP PO (06:52)
[2019-01-30] MEDS: Celecoxib 200 MG CAP 400 MG PO (06:52)
[2019-01-30] MEDS: Lactated Ringers 1,000 ML 80 ML IV ×2 (06:53→11:04)
[2019-01-30] MEDS: Bupivacaine 0.25% Pres-Free 10 ML VIAL (07:20)
[2019-01-30] MEDS: ceFAZolin 2 GM/50 ML BAG 50 GM (07:57)
[2019-01-30] MEDS: Bupivacaine 0.25% Pres-Free 30 ML VIAL (09:11)
[2019-01-30] MEDS: Ketorolac 30 MG/ML VIAL (09:12)
[2019-01-30] MEDS: Normal Saline 50 ML (09:14)
--- NOTE | 2019-01-30 11:29 | NUR.NOTE ---
Nursing Note: 1115: pt arrives to room 218 via pt bed from pacu. pt alert/oriented at this time x 3. pt denies pain in L knee. pt has patent IV in RH with LR @ 80 cc/hr, pt has patent chan draining marcelo urine at this time. pt has celestina wrap with cryo cuff in place. pt has regular HR, LS anteriorly are clear, hypo bs. pt states he had a flu shot for this season. pt has good sensation in LLE, cool to touch, +pp, good cap refill. see vs intervention for further info. continue to monitor. care of pt to be handed off to KEN Zamarripa.
--- NOTE | 2019-01-30 13:31 | IN_ITS ---
Date of service: 01/30/19 Time of Service: 12:49 PT Notes Inpatient Physical Therapy Evaluation Date: 01/30/2019 Referring Doctor: Lyle Almanzar MD PT Orders: PT CONSULT: S/P Ortho surgery. S/P left TKA Precautions: Fall. Standard. WBAT on left LE. Patient Profile/Admitting Diagnosis: Patient is a 73-year-old male status post left total knee arthroplasty due to primary unilateral osteoarthritis on POD 0. PMHX: Medical History GERD (gastroesophageal reflux disease) (Chronic) Gout (Chronic) High cholesterol (Chronic) Hypertension (Chronic) JEIMY on CPAP (Chronic) Osteoarthritis (Chronic) Seizure disorder (Chronic) Syncope (Chronic) Surgical History History of appendectomy (Chronic) History of cardiac catheterization (Chronic) History of cholecystectomy (Chronic) History of hernia repair (Chronic) History of permanent cardiac pacemaker placement (Chronic) History of total right knee replacement (Acute) Hx of surgical procedure (Acute) Social History/Home Situation: Alonso lives in a 2-floor house with 2 steps to enter without rails. He has another flight with rails on both sides to the 2nd floor of his house where his bedroom is. Alonso did say that he can make a makeshift bedroom on the first floor if needed when he goes home tonight. Alonso was independent with all mobility ADL performance without the need for an assistive device. He states that he only needed to use his FWW for only the first week since he had his other knee done in April of this year. His son Mars will be staying with patient 11/10 for the first week or two. His other son and son's family will be taking care of all meals and share in with caregiving as needed. Equipment Owned/DME: FWW Subjective: Patient is agreeable to a PT consult. He reports tenderness and dull pain over the distal L quadriceps muscle during sit<>stand movement transition. He looks forward to getting medically cleared to go home today as he is confident about going home knowing that he will have all the help he will need. Objective: General Observation: IV in L UE. UZAIR wraps to L LE. Cryocuff to L knee. Mental Status: Alert and oriented x 4 Pain: 3/10 pain on left knee with sit<>stand movment transition ROM: Right Upper Extremity: Shoulder Flexion WFL. Shoulder abduction WFL. Elbow flexion WFL. Wrist flexion WFL. Opening and closing of hand WFL. Left Upper Extremity: Shoulder Flexion WFL. Shoulder abduction WFL. Elbow flexion WFL. Wrist flexion WFL. Opening and closing of hand WFL. Right Lower Extremity: Hip flexion WFL. Hip abduction WFL. Knee flexion WFL. Ankle dorsiflexion WFL. Ankle plantarflexion WFL. Left Lower Extremity: Hip flexion WFL. Hip abduction WFL. Knee flexion 0-110. Knee extension -18. Ankle dorsiflexion WFL. Ankle plantarflexion WFL. Strength: Right Upper Extremity: Shoulder flexors 5/5. Shoulder abductors 5/5. Elbow flexors 5/5. Elbow extensors 5/5. Ring Striker strong. Left Upper Extremity: Shoulder flexors 5/5. Shoulder abductors 5/5. Elbow flexors 5/5. Elbow extensors 5/5. Ring Striker strong. Right Lower Extremity: Hip flexors 5/5. Hip abductors 5/5. Knee flexors 5/5. Knee extensors 5/5. Ankle dorsiflexors 5/5. Ankle plantarflexors 5/5. Left Lower Extremity:Hip flexors 4/5. Hip abductors 4/5. Knee flexors 3- /5. Knee extensors 3-/5. Ankle dorsiflexors 5/5. Ankle plantarflexors 5/5. Sensation: Intact as to pain and pressure on bilateral lower extremities. Bed Mobility/Transfers: Rolling independent Supine to sit independent Sit to supine independent Sit to stand independent Stand to sit independent Bed to chair supervision Chair to bed supervision Gait: Patient tolerated level surface ambulation of 160 feet using the FWW with reciprocal gait pattern requiring just supervision assist with no remarkable gait deviation except for decreased speed. Step length and height symmetrical. Balance: Static Sitting: Normal Dynamic Sitting: Normal Static Standing: Good Dynamic Standing: Fair Special Tests: Mobility Limitations Standardized Measure [facility] AM-PAC 6 clicks Basic Mobility Inpatient Short Form: Raw Score: 23 CMS Score: 11% deficit Informed Consent/Education: Patient instructed in purpose of PT consult and plan of care. Patient was educated and trained about doing B LE exercises consisting of bilateral leg raises held for 5 counts and bilateral knee flexion held for 5 counts at [id number], heel-toe raises, and seated marches x 5-10 reps every hour. Assessment: Patient is a 73-year-old male status post left total knee arthrop lasty due to primary unilateral osteoarthritis on POD 0. His motivation is excellent. He has a good support network at home and will have a son 24/7 living with him for a week or two to help with his recovery. His prognosis for achieving independent mobility level is good. Patient presents with clinical signs and symptoms consistent with current/admitting diagnoses that have resulted to mobility limitations, gait instability, generalized weakness, and impairment of motor control as demonstrated by the following impairment level findings: 1. Decreased strength to L knee major muscle groups 2. Impaired standing balance 3. Impaired activity tolerance 4. Limitation of joint range of motion in L knee Impairments are contributing to the following functional limitations: 1. Inability to safely ambulate without assistive device and physical assistance 2. Increase completion time for mobility ADL performance 3. Increased fall risk 4. Inability to negotiate steps alone safely Patient is assessed as a 40843 moderate complexity based on the following: History: Patient is a 73-year-old male status post left total knee arthroplasty due to primary unilateral osteoarthritis on POD 0. Examination: Demonstrable impairment in strength, balance, and range of motion with underlying impairments and functional limitations as documented above Presentation:Evolving Decision Makin moderate complexity Goals: Goals X1 week 1. Bed-Chair independent 2. Chair-Bed independent 3. Independent gait on level surface with use of least restrictive device for at least 300 feet without report of pain nor dyspnea 4. Independent stair negotiation while holding onto bilateral rails for at least 10 steps without report of pain nor dyspnea 5. Independent with home exercise program 6. NOrmal static and dynamic standing balance/tolerance Plan of Care/Treatment Plan: 1-2x/day, 7 days/week x 1 week. Plan of care has been reviewed with the SYNTHETIC GEM PRESS OPERATOR providing the service under Physical Therapy direction. Initiate Physical Therapy intervention for strengthening, bed mobility, transfers, gait, stairs, balance training, use of assistive device. DISCHARGE RECOMMENDATIONS: May discharge to home once medically cleared by orthopedic surgeon. May benefit from skilled physical therapy services according to orthopedic surgeon's timeline recommendations. Patient will be educated and trained on home exercise program per TKA exercise protocol in preparation for outpatient physical therapy services. TREATMENT CODE/TIME: 9716 2 x 36 minutes beginning at 12:49 PM. Thank you very much for this referral. Lizzeth Robles PT, DPT, CLT [facility]
--- NOTE | 2019-01-30 16:23 | DSE_ITS ---
Date of service: 01/30/19 Time of Service: 16:23 DS: Diagnosis Discharge Diagnosis (1) Left knee DJD: Status: Chronic Discharge Plan Disposition Patient Disposition: HOME Condition: Good Discharge Details Reason For Visit: Left Knee DJD Admit Date/Time: 01/30/19 06:06 Admit Provider: Lyle Almanzar Attending Provider: Lyle Almanzar Primary Care Provider: Elsa Fuentes [facility] Course Hospital Course: Patient was admitted to the medical/surgical floor following the procedure. It was tolerated well without any notable medical, surgical, or anesthetic complications. Mobilization began postoperatively. The chan catheter was removed and voiding spontaneously. Vitals were stable. Physical therapy worked with the patient and was cleared for discharge home. No acute medical issues. Home Meds and New Rx's Prescriptions: New celecoxib 200 mg capsule 200 mg PO BID PRN (Reason: pain) Qty: 60 RF: 1 acetaminophen 500 mg tablet 1,000 mg PO Q8H PRN (Reason: pain) Qty: 90 RF: 3 oxycodone 5 mg tablet 5 mg PO Q4H Qty: 14 RF: 0 rivaroxaban 10 mg tablet 10 mg PO DAILY Qty: 12 RF: 0 Continued omeprazole 20 mg Capsule,Delayed Release(Dr/Ec) 20 mg PO DAILY RF: 0 potassium chloride 10 mEq Capsule, Extended Release 10 meq PO BID RF: 0 hydrochlorothiazide 50 mg Tablet 50 mg PO DAILY RF: 0 levetiracetam [Keppra] 500 mg Tablet 500 mg PO BID RF: 0 amlodipine 5 mg Tablet 5 mg PO HS RF: 0 allopurinol 300 mg Tablet 300 mg PO DAILY RF: 0 losartan 100 mg Tablet 100 mg PO HS RF: 0 Discontinued aspirin [Aspir-81] 81 mg Tablet,Delayed Release (Dr/Ec) 81 mg PO HS PRNRF: 0 hydrocodone-acetaminophen 5-325 mg tablet 1 tab PO Q6H PRN PRN (Reason: pain) Qty: 8 RF: 0 acetaminophen 500 mg tablet 500 mg PO Q6H PRN PRN (Reason: pain) Qty: 60 RF: 3 naproxen sodium [Aleve] 220 mg Capsule 220 mg PO BID PRN PRNQty: 60 RF: 0 Discharge Instructions Additional Instructions: Dr. Almanzar?s Total Knee Discharge Instructions Activity: The most important activity is to walk. You should try to take short walks a few times a day. It is important that when resting you work on keeping the knee straight. Avoid putting a pillow behind the knee as this will encourage flexion. Work on range of motion exercises as provided by Physical Therapy. - Start outpatient physical therapy within 2 weeks. - You should wear the EVE hose on both legs for 2 weeks. Dressing: The initial UZAIR wrap should be removed at the end of post-operative day #1 or early on post-operative day #2. Keep the surgical dressing in place for at least one week. After the first week it may be removed and replace with light gauze and tape or nothing. It may get wet after 3 days but avoid soaking the dressing. If it gets wet, just lightly pat dry. Medications: - You should take Tylenol and anti-inflammatory Celebrex as your primary pain control medications - You have been prescribed a stronger pain medication Oxycodone for breakthrough pain, take as needed as prescribed. - You will continue your Omeprazole to help reduce stomach acid and reflux. - You will be taking Rivaroxaban 10mg daily x 14 days for DVT prevention unless instructed otherwise. - If you have constipation you should take Colace or Miralax (both [id number]). It takes most people 3-4 days to have a bowel movement. Follow-up: 2 weeks Referrals: Lyle Almanzar MD [ [facility]FF PHYSICIAN] - Activity:: Activity as Tolerated Equipment/Supplies:: No Equipment Needed Diet:: As Tolerated Discharge Orders Discharge Orders: Discharge Order (Routine); Ordered 01/30/19 Ordered By: Lyle Almanzar DS: Summary Status at Discharge Functional status at discharge: uses cane/walker Overall status at discharge: patient is progressing back to baseline Mental Status: mental status grossly normal Speech and Movement: speech and movement normal Mood: congruent mood Affect: normal affect Exam Psych Mental Status: mental status grossly normal Speech and Movement: speech and movement normal Mood: congruent mood Affect: normal affect DS: Data Vitals/I&O Vitals and I&O: Vital Signs Temperature 37 C 01/30/19 15:40 Temperature Source Temporal Artery Scan 01/30/19 15:40 Pulse 82 01/30/19 15:40 Pulse Rhythm Regular 01/30/19 06:24 Respiratory Rate 17 01/30/19 15:40 Respiratory Effort 01/30/19 06:24 Respiratory Depth Normal 01/30/19 06:24 Respiratory Pattern Normal 01/30/19 06:24 Blood Pressure 143/74 H 01/30/19 15:40 Pulse Oximetry 95 01/30/19 15:40 Respiratory End-tidal CO2 35 01/30/19 11:04 Oxygen Delivery Method Room Air 01/30/19 15:40 Oxygen Flow Rate 0 01/30/19 15:40 Pain Level 0 01/30/19 15:40 Intake & Output 01/29/19 01/30/19 01/30/19 23:59 11:59 23:59 Intake Total 1083.333 / 1083.333 Output Total 200 / 500 300 / 500 Balance 883.333 / 583.333 -300 / 583.333 Weight 104.8 kg Intake: IV 1083.333 / 1083.333 Output: Urine 50 / 350 300 / 350 Estimated Blood Loss 150 / 150 Other: Urine Color Straw Light Alicia Urine Appearance Clear Clear Comment Scant urine visible in bag; not emptied at this time [facility] Social History Smoking/Tobacco Use Status: Never Alcohol Intake: current Alcohol Intake frequency: holidays/special occasions only Alcohol type: beer and hard liquor Drug use: Never Substance use type: does not use Do you feel safe at home: Yes Additional Social history: lives alone, son close by
[2019-01-30] MEDS: ceFAZolin 1 GM/50 ML BAG IVPB (17:11)
--- NOTE | 2019-01-30 22:43 | ROE_ITS ---
Date of service: 01/30/19 Time of Service: 10:03 Operative Note Operative Note DATE OF PROCEDURE: 01/30/19 PRE-OP DIAGNOSIS: Left knee osteoarthritis POST-OP DIAGNOSIS: same PROCEDURE: Left Total Knee Replacement SURGEON: Lyle Almanzar EXTERMINATION INSPECTOR: Porsche Vasquez ANESTHESIA: regional and spinal ESTIMATED BLOOD LOSS: 150 PATHOLOGY: none sent TOURNIQUET TIME: 33 COMPLICATIONS: None Patient was transported to: PACU Patient's condition: stable Implants: 1. Depuy Attune Posterior Stabilized Femoral Component, Size 7 2. Depuy Attune Fixed Platform Tibial Component, Size 6 3. Depuy Attune 7 x 5 mm fixed, Stabilized Poly 4. Depuy Attune Patellar Component, Size 38 mm Indications: I have seen Alonso in clinic for symptoms of left knee arthritis, confirmed with radiographic findings. He has exhausted nonoperative methods and was having significant limitations in daily function and desired better function and less pain. I discussed the technical details of a knee replacement. I explained the risks of the procedure to include, but not limited to, bleeding, infection, pain, stiffness, fracture, damage to nerves and vessels, damage to muscles and tendons, loosening, need for repeat procedure, blood clot and cardiopulmonary demise. Despite these risks, Alonso elected to proceed. Findings: There was significant signs of arthritis throughout the knee. Procedure Description: Alonso was greeted in the preoperative holding area where the correct side was identified and marked. The consent was reviewed with the patient and signed. The history and physical was updated. All questions were answered. Preoperative mediacations were administered: Acetaminophen 1000mg, Celebrex 400mg, and Gabapentin 300mg. An adductor canal block was then administered by the anesthesia team in the PACU. He was taken back to the operating room. A spinal anesthestic was then administered. The patient was placed into the supine position on the operating room table. A nonsterile tourniquet was placed high onto the leg but only used for cementing. Posts were placed for positioning during the procedure. All bony prominences were well padded. Prophylactic antibiotics in the form of cefazolin were administered. 1g of Tranxemic Acid was given intravenously within 30 minutes of incision. The left leg was then prepped with Chloraprep and draped in a standard fashion with impervious stockinette and extremity drape. A second prep with Chloraprep was performed prior to placing Ioband. A timeout to confirm correct identity, side and site, procedure, allergies, anesthesia, and medical concerns was performed. With the knee in some flexion, a midline incision was made overlying the knee. Full thickness skin flaps were raised once the extensor mechanism was encountered. These were raised medially and laterally. Any bleeding was controlled with electrocautery. Once the extensor mechanism was fully exposed, a medial parapatellar arthrotomy was performed in a flexed position. All bleeding from the arthrotomy and the geniculate arteries was coagulated. A medial subperiosteal peel was performed with electrocautery to the midcoronal plane. The fat pad was removed while keeping the patellar tendon protected. The anterior distal femur synovium was removed for later visualization. The ACL and PCL were resected and the anterior horn of the lateral meniscus was transected. The knee was then flexed with the patella everted. Large osteophytes from the tibia were removed. Large osteophytes from the femur were removed. Using a step drill, and based on preoperative templating, the femoral canal was entered. This was done with a step drill without any difficulty. The intramedullary distal femoral cut guide was inserted, set to a 5 degree valgus cut and 9mm cut thickness. The distal femoral cut guide was then held in position and pinned. With the soft tissues protected, the distal cut was performed. This was passed over a few times to ensure a planar cut. I then turned attention to the tibia. The extramedullary guide was placed onto the leg. The distal aspect was slid medial to adjust for position of center of ankle and stay in line with shaft of the tibia. Approximately 3-5 degrees of posterior slope was kept in the proximal cutting guide. The center of the guide was aligned with the PCL. The stylus was used to assess cut thickness. The medial side, most involved side, was set for a 4mm cut. This was then held in position and pinned into place with 2 additional pins and a cross pin for stability. The medial and lateral collateral ligaments were protected and the cut was performed. With this completed, it was assessed and noted to be of appropriate dimensions. The guide was removed. A spacer block was inserted and the knee was brought into extension. The 5 mm spacer block provided full extension, without hyperextension and with stability of both the medial and lateral collateral ligaments was assessed. The pins from the femur and the tibia were then removed. The distal femur was then sized. The anterior stylus was placed onto the lateral ridge of the anterior femur. This indicated a size 7 femur. The external rotation of the guide was adjusted to 3 degrees to match the epicondylar axis, perpendicular to [place]?s line. The 4-in-1 cutting guide was the placed. The posterior medial femur cut was evaluated and appeared of good thickness. The spacer block was inserted underneath the cutting guide and stability was confirmed in 90 degrees of flexion. An lisandra wing was used to confirm appropriate position of the anterior cut to avoid notching. This cutting guide was ensured to be flush on the cut surface and then pinned into place with headed pins. While protecting the soft tissues, quad tendon, and collateral ligaments, the anterior and posterior cuts were performed with a saw. The central two pins were removed and the posterior and anterior chamfers were cut next. The notch-cutting guide was placed. This was pinned to lateralize the femoral component as much as possible while keeping it flush on the cut surface. This was then pinned into position. A reciprocating saw was used to make the notch cut. A rasp smoothed the cut surfaces. A trial posterior stabilized femoral component was then inserted, impacted down to the cut surfaces, and the lug holes were drilled. A provisional trial tibial component was placed and the knee was brought through range of motion. There was noted to be excellent extension and flexion. There was no significant instability. The patella was tracking without thumbs. The tibial cut surface was fully exposed. The medial and lateral menisci were removed. The tibia was then sized as a 6. The tibia had been previously marked during trialing to correspond to the center of the tibial component to help with rotation. The trial was aligned to this porsche, approximately rotated to the medial 1/3rd of the tibial tubercle. The trial was pinned into place. The tibia was prepared with a reamer and a keel punch. The knee was then brought into extension and the patella was measured as 26 mm. Using the patellar clamp and cut guide, this was resected to a flat surface with at least 13mm of thickness remaining. The size 38 patella fit the best. This was oriented and then clamped into position. The lugs were drilled. The trial components were removed. The final components, except for the polyethylene were opened on the back table. The periosteal and capsular tissues, especially posteriorly, around the knee were then systematically injected with a periarticular cocktail consisting of 50cc 0.25% Marcaine, 30mg Ketorolac, 20cc of Exparal and 50cc of injectable saline. The tourniquet was then inflated to 275mmHg. The knee was thoroughly irrigated with a pulse lavage and dried. On the back table, with the implants opened, the cement was mixed. 2 batches of antibiotic laden cement were prepared with vacuum assistance. After the cement was ready it was placed on to the back side of the tibial component. A small amount was placed onto the posterior flange of the femur. Cement was manual pressurized and impregnated into the cut surface of the tibia. The tibial component was then inserted into the cut surface and impacted into position. Excess cement was removed and the component was reimpacted. Again, excess cement was removed and our attention was then turned to the femur. The femoral cut surface was once again dried and cement was manually impacted into the cut surface. The femoral component was lined with the lug holes and impacted. Excess cement was removed. It was ensured to be down against the cut surface. The trial polyethylene was then inserted and the leg was brought out into full extension for the duration of the cement curing process, approximately 15min. Cement was lastly manually impacted into the cut surface of the patella and the patellar button was clamped into position and held. During this process attention was turned to the gutters of the knee and for all interfaces for any excess cement. After the cement had finally cured, approximately 15min, the clamp was removed from the patella and the knee was taken through range of motion. A size 5 mm polyethylene component provided the best range of motion and stability with less than 2mm gapping with medial and lateral stress and full extension without significant hyperextension. The patella was tracking with a no-thumbs technique. The trial poly was removed and once again the knee was checked for any loose, excess, or errant cement. The poly component was then inserted and impacted into position after cleaning and drying the tibial tray. The capsule was then reapproximated with a No. 1 Vicryl at multiple locations. The capsule was finally closed with a No. 2 Stratafix, barbed suture. The tourniquet was then released and the arthrotomy appeared watertight without significant bleeding. The second dosing of 1g TXA was started. Deep tissues were then reapproximated with 0 Vicryl and 2-0 Vicryl. The skin was closed with a running 3-0 Monocryl in a subcuticular fashion. This was reinforced with skin glue. A Mepilex silver dressing was applied along with a nuea-is-sytqz UZAIR wrap. A CryoCuff was applied. Alonso was transferred to the hospital bed without difficulty an suffering no apparent complication. Alonso has a good prognosis. Physical therapy will start today and without restrictions, weight-bearing as tolerated. Rivaroxaban 10 mg daily will be used for DVT prophylaxis for 14 days followed by aspirin given his history of previous clot with pacemaker insertion.
--- NOTE | 2019-01-31 08:31 | INDS_ITS ---
Date of service: 01/31/19 Time of Service: 08:31 PT Notes Inpatient Physical Therapy Discharge Summary Dates: 01/31/2019 Dates of Service: 01/30/2019 only Referring Doctor: Lyle Almanzar MD PT Orders: PT CONSULT: S/P Ortho surgery. S/P left TKA Precautions: Fall. Standard. WBAT on left LE. Patient Profile/Admitting Diagnosis: Patient is a 73-year-old male status post left total knee arthroplasty due to primary unilateral osteoarthritis on POD 1. PMHX: Medical History GERD (gastroesophageal reflux disease) (Chronic) Gout (Chronic) High cholesterol (Chronic) Hypertension (Chronic) JEIMY on CPAP (Chronic) Osteoarthritis (Chronic) Seizure disorder (Chronic) Syncope (Chronic) Surgical History History of appendectomy (Chronic) History of cardiac catheterization (Chronic) History of cholecystectomy (Chronic) History of hernia repair (Chronic) History of permanent cardiac pacemaker placement (Chronic) History of total right knee replacement (Acute) Hx of surgical procedure (Acute) Social History/Home Situation: Alonso lives in a 2-floor house with 2 steps to enter without rails. He has another flight with rails on both sides to the 2nd floor of his house where his bedroom is. Alonso did say that he can make a makeshift bedroom on the first floor if needed when he goes home tonight. Alonso was independent with all mobility ADL performance without the need for an assi stive device. He states that he only needed to use his FWW for only the first week since he had his other knee done in April of this year. His son Mars will be staying with patient 11/10 for the first week or two. His other son and son's family will be taking care of all meals and share in with caregiving as needed. Equipment Owned/DME: FWW Subjective: NT Objective: General Observation: NT Mental Status: NT Pain: NT ROM: Right Upper Extremity: Shoulder Flexion WFL. Shoulder abduction WFL. Elbow flexion WFL. Wrist flexion WFL. Opening and closing of hand WFL. Left Upper Extremity: Shoulder Flexion WFL. Shoulder abduction WFL. Elbow flexion WFL. Wrist flexion WFL. Opening and closing of hand WFL. Right Lower Extremity: Hip flexion WFL. Hip abduction WFL. Knee flexion WFL. Ankle dorsiflexion WFL. Ankle plantarflexion WFL. Left Lower Extremity: Hip flexion WFL. Hip abduction WFL. Knee flexion 0-110. Knee extension -18. Ankle dorsiflexion WFL. Ankle plantarflexion WFL. Strength: Right Upper Extremity: Shoulder flexors 5/5. Shoulder abductors 5/5. Elbow flexors 5/5. Elbow extensors 5/5. Landscape Crew Leader strong. Left Upper Extremity: Shoulder flexors 5/5. Shoulder abductors 5/5. Elbow flexo rs 5/5. Elbow extensors 5/5. Landscape Crew Leader strong. Right Lower Extremity: Hip flexors 5/5. Hip abductors 5/5. Knee flexors 5/5. Knee extensors 5/5. Ankle dorsiflexors 5/5. Ankle plantarflexors 5/5. Left Lower Extremity:Hip flexors 4/5. Hip abductors 4/5. Knee flexors 3- /5. Knee extensors 3-/5. Ankle dorsiflexors 5/5. Ankle plantarflexors 5/5. Sensation: Intact as to pain and pressure on bilateral lower extremities. Bed Mobility/Transfers: Rolling independent Supine to sit independent Sit to supine independent Sit to stand independent Stand to sit independent Bed to chair supervision Chair to bed supervision Gait: Patient tolerated level surface ambulation of 160 feet using the FWW with reciprocal gait pattern requiring just supervision assist with no remarkable gait deviation except for decreased speed. Step length and height symmetrical. Balance: Static Sitting: Normal Dynamic Sitting: Normal Static Standing: Good Dynamic Standing: Fair Assessment: Patient is a 73-year-old male status post left total knee arthroplasty due to primary unilateral osteoarthritis on POD 0. His motivation is excellent. He has a good support network at home and will have a son 24/7 living with him for a week or two to help with his recovery. His prognosis for achieving independent mobility level is good. Patient continues to present with clinical signs and symptoms consistent with current/admitting diagnoses that have resulted to mobility limitations, gait instability, generalized weakness, and impairment of motor control as demonstrated by the following impairment level findings: 1. Decreased strength to L knee major muscle groups 2. Impaired activity tolerance 3. Limitation of joint range of motion in L knee Impairments continue to contribute to the following functional limitations: 1. Inability to safely ambulate without assistive device and physical assistance 2. Inability to negotiate steps alone safely Patient is assessed as a [id number] moderate complexity based on the following: History: Patient is a 73-year-old male status post left total knee arthroplasty due to primary unilateral osteoarthritis on POD 0. Examination: Demonstrable impairment in strength, balance, and range of motion with underlying impairments and functional limitations as documented above Presentation:Evolving Decision Makin moderate complexity Goals: Goals X1 week 1. Bed-Chair independent MET 2. Chair-Bed independent MET 3. Independent gait on level surface with use of least restrictive device for at least 300 feet without report of pain nor dyspnea MET 4. Independent stair negotiation while holding onto bilateral rails for at least 10 steps without report of pain nor dyspnea MET 5. Independent with home exercise program MET 6. Normal static and dynamic standing balance/tolerance NOT MET DISCHARGE RECOMMENDATIONS: Patient is discharged to home same on POD 0 with / supervision by son and help with family with meal preparation. TREATMENT CODE/TIME: AWILDA Thank you very much for this referral. Lizzeth Robles PT, DPT, CLT [facility]
== END 2019-01-30 17:51 | disposition home or self-care (01) | DRG 470 ==
LOC: PDS 10:38 → MS 10:49
PROVIDERS: Admitting Provider Student in an Organized Health Care Education/Training Program; PCP Family Medicine; Visit Provider Student in an Organized Health Care Education/Training Program
PROC: 0SRD0J9 Replacement of Left Knee Joint with Synthetic Substitute, Cemented, Open Approach (ICD-10-PCS; CPT 27447; principal; 2019-01-30 07:30)
DX: M17.12 Unilateral primary osteoarthritis, left knee (principal); M25.562 Pain in left knee; I10 Essential (primary) hypertension; Z86.718 Personal history of other venous thrombosis and embolism; Z96.653 Presence of artificial knee joint, bilateral; Z95.0 Presence of cardiac pacemaker; K21.9 Gastro-esophageal reflux disease without esophagitis; E78.00 Pure hypercholesterolemia, unspecified; G47.33 Obstructive sleep apnea (adult) (pediatric); G40.909 Epilepsy, unspecified, not intractable, without status epilepticus
CPT/HCPCS: 27447; 76942; 97162; NC; J0690; J1100; J1885; J2250; J2370; J2405

== ENCOUNTER 2019-02-12 10:33 | Outpatient (CLI) | payer MEDICARE, OTHER, SELFPAY ==
--- NOTE | 2019-02-12 10:03 | DI.RAD_ITS ---
EXAM: XR STANDING ALIGNMENT INDICATION: 1ST POST OP. COMPARISON: XR standing alignment from 05/08/2018 TECHNIQUE: 2D digital imaging was performed. FINDINGS: There are bilateral total knee prostheses. Hip joint spaces are well maintained. The right femoral head projects 5 millimeters superior to the left. Ankle joint spaces are well maintained. There ar e some degenerative changes at the medial malleoli. IMPRESSION: Bilateral knee prostheses. Mild leg length discrepancy.
--- NOTE | 2019-02-12 10:03 | DI.RAD_ITS ---
EXAM: XR KNEE LT 1V INDICATION: 1ST POST OP. COMPARISON: XR knee RT 3V AP,lat,huan from 12/04/2018 XR STANDING ALIGNMENT from 02/12/2019 TECHNIQUE: 2D digital imaging was performed. FINDINGS: There is a total knee prosthesis. There are no surrounding abnormal bony lucencies. There is mild a nterior soft tissue swelling. There is spurring at the tibial tubercle.
== END 2019-02-12 10:53 ==
PROVIDERS: PCP Family Medicine; Referring Provider Family Medicine; Visit Provider Student in an Organized Health Care Education/Training Program
DX: Z96.652 Presence of left artificial knee joint (principal); Z47.1 Aftercare following joint replacement surgery
CPT/HCPCS: 73560; 77073

== ENCOUNTER → 2019-03-12 13:31 | Outpatient (BNVA) | payer MEDICARE, OTHER, SELFPAY | PROVIDERS: PCP Family Medicine; Referring Provider Family Medicine; Visit Provider Student in an Organized Health Care Education/Training Program | DX: Z47.1 Aftercare following joint replacement surgery (principal); Z96.652 Presence of left artificial knee joint | CPT/HCPCS: 99024 ==

== ENCOUNTER 2019-04-23 14:48 | Outpatient (CLI) | payer MEDICARE, OTHER, SELFPAY ==
--- NOTE | 2019-04-23 13:40 | DI.RAD_ITS ---
EXAM: XR KNEE RT 3V AP,LAT,RAKESH INDICATION: eval R knee pain s/p TKA. COMPARISON: XR knee RT 3V AP,lat,rakesh from 12/04/2018 TECHNIQUE: 2D digital imaging was performed. FINDINGS: There are stable postsurgical changes of a right total knee replacement. No evidence of hardware fail ure is seen. The bones are intact. Dystrophic calcifications are seen in the soft tissues. IMPRESSION: Stable right TKR.
== END 2019-04-23 15:08 ==
PROVIDERS: PCP Family Medicine; Referring Provider Family Medicine; Visit Provider Student in an Organized Health Care Education/Training Program
DX: M25.561 Pain in right knee (principal); Z96.651 Presence of right artificial knee joint; M79.89 Other specified soft tissue disorders; T84.84XA Pain due to internal orthopedic prosthetic devices, implants and grafts, initial encounter; M97.11XS Periprosthetic fracture around internal prosthetic right knee joint, sequela; Z47.1 Aftercare following joint replacement surgery; Z96.652 Presence of left artificial knee joint
CPT/HCPCS: 73562; 99213

== ENCOUNTER 2019-04-27 02:03 | Outpatient (CLI) | payer MEDICARE, OTHER, SELFPAY ==
--- NOTE | 2019-04-27 08:34 | DI.CT_ITS ---
EXAM: CT LOWER EXTREMITY RT WO CLINICAL HISTORY: pain over medial patella, painful total knee replacement rt, T84.84XA, Z96. TECHNIQUE: The exam was performed without contrast. COMPARISON: CT LOWER EXTREMITY RT WO from 10/16/2018 XR knee RT 3V AP,lat,rakesh from 12/04/2018 XR KNEE LT 1V from 02/12/2019 XR KNEE RT 3V AP,LAT,RAKESH from 04/23/2019 FINDINGS: CT examination of the right knee was performed. There is a total knee joint replacement in position a nd there is expected artifact from the TKR. No evidence of loosening of the femoral or tibial compon ents. No evidence of loosening of the patellar component. The examination is compared with previous CT 10/16/2018. A fracture of the superolateral component o f the patella was noted at that time with bone loss superolaterally. On today's examination, the fr acture fragment appears to have migrated laterally and slightly inferiorly. Note is also made of a questionable lucency projected through the medial aspect of the patella, most clearly seen on coronal views. There is artifact extending through this area which probably explains the linear lucency. However I cannot entirely exclude the possibility of a nondisplaced fracture at this site. No gross bony deformity seen medially. There may be slight medial subluxation of the pa tellar component of the TKR. IMPRESSION: Findings consistent with migration of superolateral fracture component since 10/16/2018. Artifact ob scures medial patella but there is some possibility of a nondisplaced medial patellar fracture. Question subtle medial subluxation of patellar component of TKR.
== END 2019-04-27 02:23 ==
PROVIDERS: PCP Family Medicine; Visit Provider Student in an Organized Health Care Education/Training Program
DX: M25.561 Pain in right knee (principal); T84.84XA Pain due to internal orthopedic prosthetic devices, implants and grafts, initial encounter; Z96.651 Presence of right artificial knee joint
CPT/HCPCS: 73700

== ENCOUNTER → 2019-04-30 13:05 | Outpatient (BNVA) | payer MEDICARE, OTHER, SELFPAY | PROVIDERS: PCP Family Medicine; Referring Provider Family Medicine; Visit Provider Student in an Organized Health Care Education/Training Program | DX: S82.041D Displaced comminuted fracture of right patella, subsequent encounter for closed fracture with routine healing (principal); X58.XXXD Exposure to other specified factors, subsequent encounter | CPT/HCPCS: 99213 ==

== ENCOUNTER 2019-06-04 11:08 | Outpatient (CLI) | payer MEDICARE, OTHER, SELFPAY ==
[2019-06-06 08:04] LABS: COVID-19 RT-PCR Result Not Detected
== END 2019-06-04 11:28 ==
LOC: NCHCO 11:22 → LBO 13:03
PROVIDERS: PCP Family Medicine; Visit Provider Physician Assistant Medical
DX: Z20.828 Contact with and (suspected) exposure to other viral communicable diseases (principal); Z11.59 Encounter for screening for other viral diseases; R05 Cough
CPT/HCPCS: 87449; U0003

== ENCOUNTER 2020-06-24 01:28 | Inpatient (IN) | payer MEDICARE, OTHER, SELFPAY ==
[2020-06-24] VITALS (133 sets, daily range): BP systolic 79–134; BP diastolic 55–89; PULSE 63–162; RESP 15–36; TEMP 30–36.8; O2SAT 87–99
--- NOTE | 2020-06-24 01:30 | DI.RAD_ITS ---
EXAM: XR PORTABLE CHEST AP CLINICAL HISTORY: shortness of breath TECHNIQUE: COMPARISON: CT RENAL COLIC WO CONTRAST from 11/22/2011 FINDINGS: Portable AP chest at 0155 hours. Diaphragm is elevated on the right unchanged from prior CT of Septe mber 2011. The heart is at the upper limits of normal in size. There is a transvenous cardiac pacem emely. Lungs appear grossly clear. IMPRESSION: No evidence of acute process. RADIATION DOSE DELIVERED: Total DLP
--- NOTE | 2020-06-24 01:30 | RT.EKG_ITS ---
APPROVED REPORT Exam: Resting ECG Patient Location: E HR:138 bpm ECG Measurements Heart Rate 138 AXIS ID [id number] P [id number] QRSd 99 QRS 86 QT 305 T 32 QTc 462 Conclusion Atrial fibrillation...? atrial activity afib with rapid ventricular response, no st elevation
--- NOTE | 2020-06-24 01:40 | W.ED.GENAD ---
Discharge Plan Disposition Patient Disposition: [facility] INPATIENT Condition: Stable Discharge Details Clinical Impression: Atrial fibrillation with rapid ventricular response, Dyspnea Primary Care Provider: Elsa Fuentes ED Provider: Dameon Chacon Home Meds and New Rx's Prescriptions: No Action acetaminophen 500 mg tablet 1,000 mg PO Q8H PRN (Reason: pain) Qty: 90 RF: 3 omeprazole 20 mg Capsule,Delayed Release(Dr/Ec) 20 mg PO DAILY RF: 0 potassium chloride 10 mEq Capsule, Extended Release 10 meq PO BID RF: 0 hydrochlorothiazide 50 mg Tablet 50 mg PO DAILY RF: 0 levetiracetam [Keppra] 500 mg Tablet 500 mg PO BID RF: 0 amlodipine 5 mg Tablet 5 mg PO HS RF: 0 allopurinol 300 mg Tablet 300 mg PO DAILY RF: 0 losartan 100 mg Tablet 100 mg PO HS RF: 0 Eliquis 5 mg tablet 5 mg PO BID RF: 0 Medical Decision Making 75 yo male with hx of afib and states he is on eliquis, htn, gerd, who comes in with a week or so of shortness of breath without chest pain/pressure, fever or cough. He denies abdominal pain, calf pain or falls. STates he felt it was worse tonight so came here for an evaluation. He is noted on arrival to be in afib with rvr with rates ranging from 130-140, mild tachypnea but able to speak in full sentences. No murmurs, does have diminished breath sounds at the bases as well, no calf tenderness or significant leg swelling. Suspect his symptoms are due to the afib with rvr, will treat with diltiazem. Will obtain cxr to evaluate for possible chf vs pneumonia though unlikely given lack of fever or cough. No chest pain or pressure so doubt acs. Is on eliquis and symptoms could be explained by the afib with rvr and no pleuritic pain so doubt PE at this time. Hr now after bolus of dilt 120 and bp stable, will initiate dilt drip, continues to deny chest pain/pressure pt feels much better and HR is now in the 90-110 on dilt drip. Labs show elevated probnp and troponin very mildly elevated at 0.09 which is likely demand from the elevated heart rate which he likely had for a week. Continues to deny any chest pain or pressure and states dyspnea significantly improved after heart rate now stable on dilt drip. Will discuss with hospitalist about admission Differential Diagnosis Differential Diagnosis: afib with rvr, nstemi, chf, pneumonia Medical Records Medical records reviewed: Yes I reviewed the patient's medical records. Imaging Data Radiologic Study: Attestation: I personally reviewed and interpreted this imaging study as follows: Imaging: X-Ray Radiologist's impression: no acute findings Lab Data Lab results reviewed: Yes I reviewed the patient's lab results. ECG Data Attestation: I personally reviewed and interpreted this ECG (s) as follows: Prior ECG tracings: not available for review Interpretation: atrial fibrillation with rapid ventricular response, hr 138, qtc 462, no st elevation HPI General Mode of arrival: ambulatory. Date/Time Provider Initiated Documentation: 06/24/20 01:28. Limitations to Documentation: no limitations. Information obtained by: patient. History of Present Illness 75 year old M presents to the emergency department with the chief complaint of shortness of breath, described as moderate, Patient started experiencing this week(s) (1) and it has been constant. Rest improves symptom(s), Movement worsens symptoms . Patient notes no other symptoms.. Patient did receive the following treatments prior to arrival, none Related Data Home Medications Medication Instructions Recorded Confirmed allopurinol 300 mg PO DAILY 04/14/18 06/24/20 amlodipine 5 mg PO HS 04/14/18 06/24/20 hydrochlorothiazide 50 mg PO DAILY 04/14/18 06/24/20 levetiracetam [Keppra] 500 mg PO BID 04/14/18 06/24/20 losartan 100 mg PO HS 04/14/18 06/24/20 potassium chloride 10 meq PO BID 04/14/18 06/24/20 omeprazole 20 mg PO DAILY 10/26/18 06/24/20 acetaminophen 1,000 mg PO Q8H PRN #90 tab 01/30/19 06/24/20 apixaban [Eliquis] 5 mg PO BID 06/24/20 06/24/20 Previous Rx's Medication Instructions Recorded acetaminophen 1,000 mg PO Q8H PRN #90 tab 01/30/19 Allergies Allergy/AdvReac Type Severity Reaction Status Date / Time No Known Allergies Allergy Verified 06/24/20 01:40 General Stated Complaint: SOB RACH: 2 Review of Systems All systems reviewed & are unremarkable except as noted in HPI and below Constitutional Constitutional: Denies chills, Denies fever(s) and Denies weakness Cardiovascular Cardiovascular: Denies chest pain Respiratory Respiratory: Denies cough Gastrointestinal Gastrointestinal: Denies abdominal pain, Denies nausea and Denies vomiting Genitourinary Genitourinary: Denies dysuria Musculoskeletal Musculoskeletal: Denies joint swelling Integumentary/Breasts Skin/Breast: Denies rash Neurologic Neurologic: Denies weakness [facility] Medical History (Updated 06/24/20 @ 02:42 by Dameon Chacon MD) GERD (gastroesophageal reflux disease) Gout High cholesterol Hypertension JEIMY on CPAP Osteoarthritis Seizure disorder No seizure activity >10yr Syncope Surgical History (Updated 04/30/19 @ 13:27 by ANABELLE Mahoney) History of appendectomy History of cardiac catheterization History of cholecystectomy History of hernia repair History of permanent cardiac pacemaker placement Pacer/defib History of total left knee replacement (TKR) (01/30/19) Dr. Almanzar History of total right knee replacement 03/2018 Hx of surgical procedure Groin tumor removal Hx of tonsillectomy Social History Smoking/Tobacco Use Status: Never Smoking risk assessment performed?: Yes Alcohol Intake: current Alcohol Intake frequency: holidays/special occasions only Alcohol type: beer and hard liquor Drug use: Never Substance use type: does not use Current gender identity: male Do you feel safe at home: Yes Additional Social history: lives alone, son close by Exam Const General: no acute distress Orientation: alert HENWV Head: normal to inspection Ears: external ears normal General nose exam: external nose normal Mouth: moist mucous membranes Eyes General: appearance normal, both eyes and all related structures Neck Neck: normal visual inspection Resp Effort & Inspection: normal respiratory effort and able to speak in complete sentences Cardio Jugular venous pressure: no JVD Rate: tachycardic Skin General skin exam: no rashes or lesions noted Neuro General: patient alert and patient oriented x3 Extrem General: normal to inspection Psych Mental Status: mental status grossly normal Course Vital Signs Vital signs: Vital Signs Temperature 36.6 C 06/24/20 01:35 Pulse 160 H 06/24/20 01:35 Respiratory Rate 16 06/24/20 01:35 Blood Pressure 124/72 06/24/20 01:35 Pulse Oximetry 99 06/24/20 01:35 Temperature 36.6 C 06/24/20 01:35 Temperature Source Tympanic 06/24/20 01:35 Pulse 160 H 06/24/20 01:35 Respiratory Rate 16 06/24/20 01:35 Respiratory Effort Non-Labored 06/24/20 01:39 Blood Pressure 124/72 06/24/20 01:35 Blood Pressure Position Sitting 06/24/20 01:35 Pulse Oximetry 99 06/24/20 01:35 Oxygen Delivery Method Room Air 06/24/20 01:35 Oxygen Flow Rate 0 06/24/20 01:35 Pain Level 0 06/24/20 01:35 Critical Care Time Critical Care Time Critical Care Time: Yes Total Critical Care Time: 60 (minutes) Attestation: time spent administering diltiazem for afib with rvr, frequent reassessments and lab review in patient with potential to deteriorate at any time
[2020-06-24] MEDS: dilTIAZem 25 MG/5 ML VIAL 20 MG IVP (01:45)
[2020-06-24] MEDS: dilTIAZem 125 MG in Normal Saline 100 ML IV (02:03)
[2020-06-24 02:07] LABS: Abs Immature Grans 0.01 10^3/uL (0.0-0.06); Absolute Basophil Count 0.09 10^3/uL (0.0-0.2); Absolute Eosinophil Count 0.24 10^3/uL (0.0-0.7); Absolute Lymphocyte Count 1.53 10^3/uL (1.2-3.4); Absolute Monocyte Count 0.81 10^3/uL (0.1-0.8); Absolute Neutrophil Count 5.03 10^3/uL (1.2-6.7); Basophils % 1.2; Eosinophils % 3.1; HCT 50.7 % (40.0-50.0); HGB 16.4 g/dL (13.5-17.5); Immature Grans % 0.1; Lymphocytes % 19.8; MCH 29.9 pg (27.0-33.0); MCHC 32.3 % (32.0-36.0); MCV 92.5 fL (80-95); MPV 11.9 fL (8.0-11.0); Monocytes % 10.5; Neutrophils % 65.3; Nucleated RBC 0 %; Platelet Count 207 10^3/uL (130-400); RBC 5.48 10^6/uL (4.36-5.78); RDW 15.3 % (11.8-14.1); RDW-SD 51.4 fL; WBC 7.71 10^3/uL (4.4-10.8)
[2020-06-24 02:10] LABS: INR 1.2 (0.9-1.1); PTT Activated 27.6 sec (21.0-27.5); Prothrombin Time 11.8 sec (9.3-11.0)
[2020-06-24 02:16] LABS: ALT 69 U/L (16-63); AST 30 U/L (15-37); Albumin 3.9 g/dL (3.4-5.0); Alkaline Phosphatase 75 U/L (46-116); Anion Gap 12.2 mmol/L (3-11); BUN 34 mg/dL (7-18); Bilirubin, Total 1.1 mg/dL (0.2-1.0); CO2 26.8 mmol/L (21.0-32.0); CREATININE 1.7 mg/dL (0.70-1.30); Calcium 9.3 mg/dL (8.5-10.1); Chloride 105 mmol/L (98-107); Estimated GFR 39.28 (mL/min/1.73m2); Glucose 122 mg/dL (74-106); Magnesium 1.8 mg/dL (1.8-2.4); Potassium 3.7 mmol/L (3.5-5.1); Sodium 144 mmol/L (136-145); TSH (W/Ref FT4) 16.36 uIU/mL (0.36-3.74); Total Protein 7.5 g/dL (6.4-8.2)
[2020-06-24 02:18] LABS: Troponin I 0.09 ng/mL (<0.06)
--- NOTE | 2020-06-24 02:23 | NUR.NOTE ---
Nursing Note: EDP updated with pt vitals , no further orders or instruction. Pt remains full cardiac monitoring. Requests blanket and for lights to be dimmed. pts sig other remains at bedside.
[2020-06-24 02:35] LABS: FREE T4 1.33 ng/dL (0.76-1.46); NT-proBNP 3826 pg/mL (<300)
[2020-06-24 02:45] LABS: COVID-19 PCR Negative (Negative)
[2020-06-24] MEDS: Furosemide 20 MG/2 ML VIAL IVP (02:47)
--- NOTE | 2020-06-24 02:50 | DI.VRAD_ITS ---
PROCEDURE INFORMATION: Exam: XR Chest Exam date and time: 06/24/2020 1:39 AM Age: 75 years old Clinical indication: Shortness of breath; Prior surgery; Surgery date: 6+ months; Surgery type: Pacemaker 10 years ago; Patient HX: SOB TECHNIQUE: Imaging protocol: XR of the chest Views: 1 view. COMPARISON: No relevant prior studies available. FINDINGS: Lungs: Unremarkable. No consolidation. Pleural spaces: Unremarkable. No pleural effusion. No pneumothorax. Heart/Mediastinum: Unremarkable. No cardiomegaly. Diaphragm: Slight elevated right hemidiaphragm Bones/joints: Unremarkable. Soft tissues: Pacemaker in place overlying left axilla IMPRESSION: No acute findings Dictated and Authenticated by: Tremaine Cannon MD. Ordering:SINGH Xiao MD
--- NOTE | 2020-06-24 03:03 | W.PM.HP.N ---
Date of service: 06/24/20 Time of Service: 03:03 Assessment and Plan Assessment and plan (1) Atrial fibrillation with rapid ventricular response: Status: Acute Assessment and plan: AF/RVR, with new onset CHF (likely result of former), and likely demand ischemia. Will begin beta nilda and up titrate dilt as needed in interim. Will trend out troponins. Usual meds as is except hold Amlodipine. TSH noted. Unless in the unlikely event this should prove to represent primary hyperthyroidism -- will begin by checking FT4 -- this is to be considered incidental hypothyroidism and would begin replacement. History of Present Illness History of Present Illness Chief Complaint: SOB Narrative: 75 male with h/o AF, not on any rate control medication -- comes in with several weeks of SOB, worse over past 2 days, along with orthopnea. In ER findings of note for AF with RVR, BNP 3286, CXR with mild pulmonary edema, EKG with NSSTTWCs and initial trop 0.09. Started on diltiazem drip and given Lasix 20 IVP. rate has come down to 90s-130s, says he feels better. At no point has be been aware of any CP. Incidental finding of TSH 16. Is admitted for further management. Review of Systems All systems reviewed & are unremarkable except as noted in HPI and below PFSH Medical History GERD (gastroesophageal reflux disease) Gout High cholesterol Hypertension JEIMY on CPAP Osteoarthritis Seizure disorder No seizure activity >10yr Syncope Surgical History History of appendectomy History of cardiac catheterization History of cholecystectomy History of hernia repair History of permanent cardiac pacemaker placement Pacer/defib History of total left knee replacement (TKR) (01/30/19) Dr. Almanzar History of total right knee replacement 03/2018 Hx of surgical procedure Groin tumor removal Hx of tonsillectomy Social History Smoking/Tobacco Use Status: Never Smoking risk assessment performed?: Yes Alcohol Intake: current Alcohol Intake frequency: holidays/special occasions only Alcohol type: beer and hard liquor Drug use: Never Substance use type: does not use Current gender identity: male Do you feel safe at home: Yes Additional Social history: lives alone, son close by Meds Home Medications and Allergies Allergies Allergy/AdvReac Type Severity Reaction Status Date / Time No Known Allergies Allergy Verified 06/24/20 01:40 Home Medications Medication Instructions Recorded Confirmed Type allopurinol 300 mg PO DAILY 04/14/18 06/24/20 History amlodipine 5 mg PO HS 04/14/18 06/24/20 History hydrochlorothiazide 50 mg PO DAILY 04/14/18 06/24/20 History levetiracetam [Keppra] 500 mg PO BID 04/14/18 06/24/20 History losartan 100 mg PO HS 04/14/18 06/24/20 History potassium chloride 10 meq PO BID 04/14/18 06/24/20 History omeprazole 20 mg PO DAILY 10/26/18 06/24/20 History acetaminophen 1,000 mg PO Q8H PRN #90 tab 01/30/19 06/24/20 Rx apixaban [Eliquis] 5 mg PO BID 06/24/20 06/24/20 History Exam Narrative Exam Narrative: 108/84, pulse varies 90s-130s, 36.6, 16, 96% RA. HEENT atraumatic; neck supple, cannot see JVP, thyroid WNL; lungs clearl heart irr/irr; abdomen soft and NT; extremities w/o edema; neuro Ox3, nonfocal Results Labs Result diagrams: 06/24/20 01:45 06/24/20 01:45 Labs: Laboratory Results - last 24 hr 06/24/20 06/24/20 06/24/20 01:45 01:45 01:45 WBC 7.71 RBC 5.48 Hgb 16.4 Hct 50.7 H MCV 92.5 MCH 29.9 MCHC 32.3 RDW 15.3 H Plt Count 207 MPV 11.9 H Immature Gran % 0.1 Neutrophils % 65.3 Lymphocytes % 19.8 Monocytes % 10.5 Eosinophils % 3.1 Basophils % 1.2 Nucleated RBC % 0 Absolute Neutrophils 5.03 Absolute Lymphocytes 1.53 Absolute Monocytes 0.81 H Absolute Eosinophils 0.24 Absolute Basophils 0.09 PT INR APTT Sodium 144 Potassium 3.7 Chloride 105 Carbon Dioxide 26.8 Anion Gap 12.2 H BUN 34 H Creatinine 1.7 H Estimated GFR/1.73 m2 39.28 Glucose 122 H Calcium 9.3 Magnesium 1.8 Total Bilirubin 1.1 H AST 30 ALT 69 H Alkaline Phosphatase 75 Troponin I 0.09 H* NT-Pro-B Natriuret Pep 3826 H Total Protein 7.5 Albumin 3.9 TSH 16.36 H Free T4 1.33 COVID-19 Source Nasopharyx SARS-CoV-2 (PCR) Negative 06/24/20 01:45 WBC RBC Hgb Hct MCV MCH MCHC RDW Plt Count MPV Immature Gran % Neutrophils % Lymphocytes % Monocytes % Eosinophils % Basophils % Nucleated RBC % Absolute Neutrophils Absolute Lymphocytes Absolute Monocytes Absolute Eosinophils Absolute Basophils PT 11.8 H INR 1.2 H APTT 27.6 H Sodium Potassium Chloride Carbon Dioxide Anion Gap BUN Creatinine Estimated GFR/1.73 m2 Glucose Calcium Magnesium Total Bilirubin AST ALT Alkaline Phosphatase Troponin I NT-Pro-B Natriuret Pep Total Protein Albumin TSH Free T4 COVID-19 Source SARS-CoV-2 (PCR) Last Vital Signs Temp 36.6 C 06/24/20 01:35 Pulse 143 H 06/24/20 03:01 Resp 16 06/24/20 02:09 BP 108/84 06/24/20 03:01 Pulse Ox 96 06/24/20 03:01 COVID-19 Screening Have you, or household traveled for leisure in last 14 days?: No Had IN PERSON contact w/suspected or confirmed C-19 person: No
--- NOTE | 2020-06-24 03:17 | NUR.NOTE ---
Nursing Note: Pt's sig other FRANKLIN RODRIGUEZ [phone]
[2020-06-24] MEDS: Metoprolol 12.5 MG TAB PO ×2 (03:36→05:06)
--- NOTE | 2020-06-24 05:11 | NUR.NOTE ---
Nursing Note: Call confirm to Dr Borjas for 2nd dose 12.5mg PO metoprolol.
[2020-06-24 08:05] LABS: HCT 47.1 % (40.0-50.0); HGB 15.4 g/dL (13.5-17.5); MCHC 32.7 % (32.0-36.0); MCV 91.8 fL (80-95); Platelet Count 190 10^3/uL (130-400); RBC 5.13 10^6/uL (4.36-5.78); RDW 15.3 % (11.8-14.1); RDW-SD 51.2 fL; WBC 6.29 10^3/uL (4.4-10.8)
--- NOTE | 2020-06-24 08:07 | W.PM.PROGNOT ---
Date of Service Date of service: 06/24/20 Time of Service: 15:24 Assessment and Plan Assessment and plan (1) Atrial fibrillation with rapid ventricular response: Status: Acute Assessment and plan: Start digoxin. D/c lopressor/cardizem due to patient's blood pressures not tolerating these meds. COntinue anticoagulation. Consider cardioversion. (2) Acute on chronic systolic CHF (congestive heart failure): Status: Acute Assessment and plan: Diurese gently while monitoring BP. (3) Cardiomyopathy: Status: Acute Assessment and plan: EF 33%. Avoid CCB. Discussed with DR Balderas. (4) Seizure disorder: Status: Chronic Assessment and plan: Continue keppra. (5) Discharge planning issues: Status: Acute Assessment and plan: Full code. Consider transfer to the [place] for cardioversion vs cardioversion here on . Total Critical Care Time 40 minutes. Subjective Subjective Interval history since last seen: Both diltiazem gtt and low dose IV metoprolol did lower the patient's heart rate but also lowered his blood pressure. The patient is asymptomatic. He is requiring 1 L of O2, no dizziness, palpitations, or chest pain. Usually uses CPAP. Mild nausea this am, but not now. Has a pacemaker. [facility]. Case discussed with Dr Balderas who is consulted: will start digoxin and diurese. LVEF 33%, RVSP 33.3 mmHg. Plan for cardioversion - whether that be here on or require transfer to the [place]. Exam Narrative Exam Narrative: General: Pleasant male, sitting calmly at the side of the bed, A&Ox3, comfortable HEENT: EOMI, MMM Heart: irregularly irregular rhythm, HR close to 100 Lungs: crackles at B lung bases Abdomen: soft, nontender, nondistended Extremities: no edema Objective Last Vital Signs Temp 36.0 C L 06/24/20 06:52 Pulse 112 H 06/24/20 07:31 Resp 23 06/24/20 07:31 BP 89/69 L 06/24/20 07:31 Pulse Ox 98 06/24/20 07:44 Laboratory Results - last 24 hr 06/24/20 06/24/20 06/24/20 01:45 01:45 01:45 WBC 7.71 RBC 5.48 Hgb 16.4 Hct 50.7 H MCV 92.5 MCH 29.9 MCHC 32.3 RDW 15.3 H Plt Count 207 MPV 11.9 H Immature Gran % 0.1 Neutrophils % 65.3 Lymphocytes % 19.8 Monocytes % 10.5 Eosinophils % 3.1 Basophils % 1.2 Nucleated RBC % 0 Absolute Neutrophils 5.03 Absolute Lymphocytes 1.53 Absolute Monocytes 0.81 H Absolute Eosinophils 0.24 Absolute Basophils 0.09 PT INR APTT Sodium 144 Potassium 3.7 Chloride 105 Carbon Dioxide 26.8 Anion Gap 12.2 H BUN 34 H Creatinine 1.7 H Estimated GFR/1.73 m2 39.28 Glucose 122 H Calcium 9.3 Magnesium 1.8 Total Bilirubin 1.1 H AST 30 ALT 69 H Alkaline Phosphatase 75 Troponin I 0.09 H* NT-Pro-B Natriuret Pep 3826 H Total Protein 7.5 Albumin 3.9 TSH 16.36 H Free T4 1.33 COVID-19 Source Nasopharyx SARS-CoV-2 (PCR) Negative 06/24/20 06/24/20 01:45 04:37 WBC RBC Hgb Hct MCV MCH MCHC RDW Plt Count MPV Immature Gran % Neutrophils % Lymphocytes % Monocytes % Eosinophils % Basophils % Nucleated RBC % Absolute Neutrophils Absolute Lymphocytes Absolute Monocytes Absolute Eosinophils Absolute Basophils PT 11.8 H INR 1.2 H APTT 27.6 H Sodium Potassium Chloride Carbon Dioxide Anion Gap BUN Creatinine Estimated GFR/1.73 m2 Glucose Calcium Magnesium Total Bilirubin AST ALT Alkaline Phosphatase Troponin I Cancelled NT-Pro-B Natriuret Pep Total Protein Albumin TSH Free T4 COVID-19 Source SARS-CoV-2 (PCR) Objective Narrative Objective Narrative: echo: Left Ventricle : The left ventricle is normal size. Left ventricular systolic function is moderately decreased. There is normal left ventricular wall thickness. There is global hypokinesis of the left ventricle. The left ventricular diastolic function is abnormal. LVEF is 33%. Right Ventricle : Right ventricle is grossly normal in size. Right ventricular systolic function is grossly normal. The RVSP is 33.3mmHg. Pacemaker lead is present in the right ventricle. Mitral Valve : Severe mitral annular calcification. The mobility of the posterior leaflet is significantly reduced. No evidence of mitral valve stenosis. Moderate mitral regurgitation. Mitral regurgitation jet is eccentrically directed. Great Vessels : The aortic root is normal in size. The ascending aorta is moderately dilated (4.0). Aortic arch is not well visualized. The IVC is dilated and collapses <50% with inspiration. Please see remainder of study for further details. CXR: No evidence of acute process.
[2020-06-24 08:17] LABS: Troponin I 0.06 ng/mL (<0.06)
[2020-06-24 08:19] LABS: FREE T4 1.39 ng/dL (0.76-1.46)
--- NOTE | 2020-06-24 08:47 | PDOC.CMIN ---
<Emily Miller - Last Filed: 06/24/20 08:47> - If Service Date Differs Date of service: 06/24/20 Time of Service: 08:47 Care Management Initial Assess REASON FOR HOSPITALIZATION:: AF/RVR, CHF PAST MEDICAL HISTORY/PAST SURGICAL HISTORY:: GERD (gastroesophageal reflux disease). Gout. High cholesterol. Hypertension. JEIMY on CPAP. History of appendectomy. History of cardiac catheterization. History of cholecystectomy. History of hernia repair. History of permanent cardiac pacemaker placement. Pacer/defib. History of total left knee replacement (TKR) (01/30/19). Dr. Almanzar. History of total right knee replacement. 03/2018. Hx of surgical procedure. Groin tumor removal. Hx of tonsillectomy. Osteoarthritis. Seizure disorder. No seizure activity >10yr. Syncope PREVIOUS FUNCTIONAL STATUS/SOCIAL/FAMILY SUPPORTS:: Alonso resides in [place], [place] in a single level home with 2 steps to enter, no rail. 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 His son, Navjot is a primary support. Alonso is independent with ADLs at baseline in the community. CURRENT FUNCTIONAL STATUS:: Alonso remains in the ICU at this time. ADVANCE DIRECTIVES:: On file at [facility]; Ashutosh Has patient been provided with info about the portal/API?: Yes Did the patient sign up for the portal?: No CODE STATUS:: Full Code INSURANCE COVERAGE / FINANCIAL ISSUES:: Medicare, CURRENT HOME/COMMUNITY SERVICES/EQUIPMENT:: [employer], [employer] PRIMARY CARE PHYSICIAN:: Elsa Fuentes POTENTIAL DISCHARGE NEEDS:: PT evaluation, follow up appointment with Dr. Almanzar. PATIENT/FAMILY EDUCATION NEEDS:: Review discharge instructions, discuss Ask Me Three. ANTICIPATED BARRIERS TO DISCHARGE:: None identified. TRANSPORTATION:: Via private vehicle with his son, Alonso. PLAN:: Alonso will return home when ready per MD. He christina follow up with Dr. Almanzar and his plan of care as prescribed including activity restrictions and medication recommendations. He will transport via private vehicle with his son, Alonso. <Tigist King - Last Filed: 06/24/20 16:07> Care Management Initial Assess PREVIOUS FUNCTIONAL STATUS/SOCIAL/FAMILY SUPPORTS:: Alonso has a lady friend, Claire, who resides with him in his home. He continues to drive and receives no community services. Alonso does not anticipate the need for any resources at discharge. CURRENT FUNCTIONAL STATUS:: He was sitting up in bed when CM met with him and readily engaged in conversation. Alonso stated that he is feeling better - 90%, he said. He shared that he has 3 boys, but only one lives in the area. He also has 10 grandchildren. Six live in the area and Alonso describes them as very supportive. PLAN:: Alonso is currently in the ICU due to having afib with a rapid ventricular response. He is receiving Digoxin to help control the rate and will be started on a lasix drip as he also has CHF. Alonso will likely not require any new services at discharge. CM will continue to suppport Alonso and assess for discharge planning needs.
[2020-06-24] MEDS: Allopurinol 300 MG TAB PO (08:58)
[2020-06-24] MEDS: levETIRAcetam 500 MG TAB PO ×2 (08:58→20:31)
[2020-06-24] MEDS: Omeprazole 20 MG CAPCR PO (08:59)
[2020-06-24] MEDS: Apixaban 5 MG TAB PO ×2 (08:59→20:31)
[2020-06-24] MEDS: MAGNESIUM SULFATE 2 GM/50 ML BAG IVPB (08:59)
[2020-06-24] MEDS: Potassium Chloride 20 MEQ TABCR PO (09:00)
[2020-06-24] MEDS: Aspirin E.C. 325 MG TABEC PO (09:00)
--- NOTE | 2020-06-24 09:24 | DI.US_ITS ---
APPROVED REPORT EXAM: Comprehensive 2D, Doppler, and color-flow Echocardiogram Patient Location: In-Patient Room/Bed: 219 Electron Tube Assembler: Mickie Calvo RDCS (AE) Indications: A Fib, CHF, SOB Other Information Study Quality: Adequate Conclusion Left Ventricle : The left ventricle is normal size. Left ventricular systolic function is moderately decreased. There is normal left ventricular wall thickness. There is global hypokinesis of the left v entricle. The left ventricular diastolic function is abnormal. LVEF is 33%. Right Ventricle : Right ventricle is grossly normal in size. Right ventricular systolic function is g rossly normal. The RVSP is 33.3mmHg. Pacemaker lead is present in the right ventricle. Mitral Valve : Severe mitral annular calcification. The mobility of the posterior leaflet is signific antly reduced. No evidence of mitral valve stenosis. Moderate mitral regurgitation. Mitral regurgitat ion jet is eccentrically directed. Great Vessels : The aortic root is normal in size. The ascending aorta is moderately dilated (4.0). A ortic arch is not well visualized. The IVC is dilated and collapses <50% with inspiration. Please see remainder of study for further details. Wall motion Left Ventricle The left ventricle is normal size. Left ventricular systolic function is moderately decreased. There is normal left ventricular wall thickness. There is global hypokinesis of the left ventricle. The lef t ventricular diastolic function is abnormal. There is no ventricular septal defect visualized. LVEF is 33%. Right Ventricle Right ventricle is grossly normal in size. Right ventricular systolic function is grossly normal. The RVSP is 33.3mmHg. Pacemaker lead is present in the right ventricle. Atria Left atrium is severely dilated. Right atrium is mildly dilated. The interatrial septum is intact wit h no evidence for an atrial septal defect. Aortic Valve The Aortic valve is sclerotic. Aortic valve is trileaflet. There is no aortic valvular stenosis. Mild aortic regurgitation. Mitral Valve Severe mitral annular calcification. The mobility of the posterior leaflet is significantly reduced. No evidence of mitral valve stenosis. Moderate mitral regurgitation. Mitral regurgitation jet is ecce ntrically directed. Tricuspid Valve The tricuspid valve is normal in structure. There is no tricuspid valve stenosis. Mild to moderate tr icuspid regurgitation. Pulmonic Valve The pulmonary valve is normal in structure. There is no pulmonic valvular stenosis. There is no pulmo ni valvular regurgitation. Great Vessels The aortic root is normal in size. The ascending aorta is moderately dilated (4.0). Aortic arch is no t well visualized. The IVC collapses <50% with inspiration. Pericardium There is no pericardial effusion. 2D Dimensions IVSD d PLAX 0.86 cm M: 0.6-1.2 LV Vol A2C d MOD 128.3 mL LVPW d PLAX 0.86 cm M: 0.6 - 1.2 LV Vol A4C d MOD 137.2 mL LVID d PLAX 5.69 cm M: 4.2 - 5.8 LA vol/ BSA A2C s A-L 59.2 mL/m2 LVDs 4.60 cm M: 2.5 - 4.0 LA vol/ BSA A4C s A-L 45.5 mL/m2 Ao Root d 3.29 cm M: 3.1 - 3.7 LA Vol/ BSA Biplane s A-L 53.4 mL/m2 RA Area A4C 19.40 cm2 LA Area A4C s MOD 28.41 cm2 RA Vol/ BSA A4C s A-L 29.8 mL/m2 LA Area A2C s MOD 31.51 cm2 Ao Asc Diam d 4.01 cm M: 2.6 - 3.4 LV EF A4C MOD 31.9 % LV EF Teichholz 37.7 % LV EF A2C MOD 32.3 % LVEF (Noyola's) 33.02 % M: 52 - 72 LV EF Biplane MOD 33.0 % LV Volume 99.78 mL M: 62 - 150 SV 44.54 mL LV Volume Index 47.97 mL/m2 M: 34 - 74 SV Index 21.35 mL/m2 LV Vol Biplane MOD 134.9 mL FS 18.40 % M-Mode TAPSE 1.56 cm (M/F) >1.7 LV Diastology MV E' medial 0.052 (>0.07 m/s) MV E Vmax 1.39 (0.4-1.3 m/s) LV E/e MED 26.75 (<14) MV E' lateral 0.062 (>0.1 m/s) LV E/e LAT 22.50 (<14) MV E/E' medial 26.77 MV E/E' lateral 22.52 Aortic Valve LVOT Area 2.79 cm2 AoV Area Vmax 1.60 cm2 LVOT Vmax 0.80 m/s AoV Area/ BSA (Vmax) 0.77 cm2/m2 LVOT Mean Dm. 0.57 m/s NORBERT Mean Dm. 1.60 cm2 LVOT Peak Grad 2.6 mmHg NORBERT Mean Dm. Index 0.77 cm2/m2 LVOT Mean Grad 1.5 mmHg AR DT 1817 msec LVOT VTI 0.127 m AR PHT 527 msec LVOT Diam s 1.85 cm AoV Vmax 1.40 m/s Velocity Ratio 0.57 AoV Mean Dm. 1.00 m/s AoV Peak Grad 7.8 mmHg LVOT SV 35.27 mL AoV Mean Grad 4.3 mmHg AoV VTI 0.226 m AoV Area VTI 1.56 cm2 AoV Area/ BSA (VTI) 0.75 cm/m2 Mitral Valve MV DT 150 (160-240 msec) MR Vmax 3.26 m/s MV PHT 43 msec MR VTI 0.760 m MV Area PHT 5.07 cm2 MR Peak Grad 42.5 mmHg MV VTI 0.254 m MR Mean Grad 26.8 mmHg MV VTI Annulus 0.268 m MR PISA Radius 0.59 cm MV Area VTI 1.47 (4.0-6.0 cm2) MR EROA 0.23 cm2 MR Aliasing Velocity 0.35 m/s MR PISA 2.17 cm2 Pulmonary Valve PV Vmax 0.53 (0.5-1.5 m/s) RVOT Peak Gr. 0.44 mmHg PV Peak Grad 1.1 mmHg RVOT Mean Gr. 0.25 mmHg PV Mean Grad 0.5 mmHg RVOT VTI 0.044 m PV VTI 0.067 m RVOT Vmax 0.33 m/s Tricuspid Valve TR Peak Grad 25.2 mmHg TR Vmax 2.51 m/s RA Pressure 8.00 mmHg RVSP (TR) 33.3 mmHg
[2020-06-24] MEDS: Ondansetron 4 MG/2 ML VIAL IVP (09:41)
[2020-06-24] MEDS: Normal Saline Flush 10 ML SYR IVP ×3 (09:42→15:52)
[2020-06-24] MEDS: Metoprolol 5 MG/5 ML VIAL 2.5 MG IVP (11:46)
[2020-06-24 12:54] LABS: Troponin I 0.06 ng/mL (<0.06)
--- NOTE | 2020-06-24 14:05 | CHAPLAIN ---
I had a brief visit with Alonso. He came in last night after experiencing discomfort. His friend was with him last night and is visiting today. Alonso is very active in the community and his son Najvot lives locally and is a support as well. Alonso was took care of his for several years when she was dealing with cancer. She a few years ago. Alonso is an active member of the [facility]. He declined my offer to contact the sabianist for him.
--- NOTE | 2020-06-24 15:18 | W.CARDCONSUL ---
Date of service: 06/24/20 Time of Service: 15:18 Assessment and Plan Assessment and plan (1) Atrial fibrillation with rapid ventricular response: Status: Acute (2) Dyspnea: Status: Acute (3) Cardiomyopathy: Status: Acute Assessment and plan: 1. Cardiomyopathy: Likely related to atrial fibrillation though it is unclear how long he has been in RVR. We do not have a prior echocardiogram to compare this to. The patient states that he had a catheterization many years ago was told that he had a very healthy heart. Again we do not have full records on this as he is receiving his cardiac care at the [facility]. At the very least we should try to control his atrial fibrillation and diurese him. ?Continue IV diuresis as his IVC was dilated and noncollapsible on echocardiogram today. ?Okay to diurese despite low systolic blood pressures as long as MAP is above 60. ?Once aggressive diuresis is completed would restart losartan +/- hydrochlorothiazide as BP allows ?I do not see that he is on at home AV baljeet blocking agent and would recommend long-acting metoprolol in this case. 2. Atrial fibrillation with rapid ventricular response. Patient has known history of paroxysmal atrial fibrillation but it sounds like this is the longest he has been in atrial fibrillation. Agree with metoprolol rate control. Goal heart rate less than 110. Given his cardiomyopathy I would stay away from diltiazem. He has a pacemaker so you do not need to worry about overmedication and bradycardia. ?Can transition to oral metoprolol would start with metoprolol succinate every 6 to get an idea of how much metoprolol he needs. ?Continue Eliquis. The patient reports that he has not missed a single dose in more than a month thus we do not need a MELISSA prior to cardioversion as long as he has not missed a dose here. ?Discussed with the patient briefly about potentially cardioverting. This might be better accomplished with a transfer to the [facility] as that is where he gets most of his care and has a lead systems engineer. At the very least we should continue diuresis as above to give him the best chance of maintaining normal sinus rhythm once converted. The patient is currently quite stable resting in bed which allows us to formulate a plan more controlled fashion rather than urgent cardioversion. We will discuss these options with the primary team. ?Okay to initiate digoxin as above but this medication is not particularly effective as a rate controlling agent and has little or no effectiveness at cardioverting. History of Present Illness History of Present Illness Chief Complaint: SOB Narrative: Mr. Medina is a 75-year-old male with past medical history significant for pacemaker (sounds as though it was placed due to bradycardia), paroxysmal atrial fibrillation and newly diagnosed cardiomyopathy who presents with shortness of breath. The patient is a patient at the [facility] where he receives his cardiac care. He said he was told on his most recent device interrogation that has been going in and out of atrial fibrillation. He has never received a cardioversion. He has been on Eliquis for about a year and has not missed a dose per the patient. He says he has had paroxysms of A. fib but over the past few days has noted increased shortness of breath which he thinks is due to the atrial fibrillation. He does not necessarily feel his heart racing or feel any palpitations. He does not think he is gained much weight but over the past few days has been unable to lay flat due to significant shortness of breath. He currently denies lightheadedness dizziness or chest pain. He says he is about 90% back to his baseline after being diuresed. An echocardiogram today showed ejection fraction 30s and moderate mitral regurgitation. We do not have any of the records from the [facility] to determine prior function prior valve issues. In review of his telemetry it looks as though his heart rates have been mostly in the 120s. Sounds as though he is been getting some diltiazem as well as his metoprolol. Review of Systems All systems reviewed & are unremarkable except as noted in HPI and below PFSH Medical History (Updated 06/24/20 @ 15:21 by Teddy Balderas MD) GERD (gastroesophageal reflux disease) Gout High cholesterol Hypertension JEIMY on CPAP Osteoarthritis Seizure disorder No seizure activity >10yr Syncope Surgical History History of appendectomy History of cardiac catheterization History of cholecystectomy History of hernia repair History of permanent cardiac pacemaker placement Pacer/defib History of total left knee replacement (TKR) (01/30/19) Dr. Almanzar History of total right knee replacement 03/2018 Hx of surgical procedure Groin tumor removal Hx of tonsillectomy Social History Smoking/Tobacco Use Status: Never Smoking risk assessment performed?: Yes Alcohol Intake: current Alcohol Intake frequency: holidays/special occasions only Alcohol type: beer and hard liquor Drug use: Never Substance use type: does not use Current gender identity: male Do you feel safe at home: Yes Additional Social history: lives alone, son close by Exam Const General: comfortable and no acute distress HENMT Head: normocephalic and atraumatic Eyes General: appearance normal, both eyes and all related structures Resp Effort & Inspection: normal respiratory effort Auscultation: clear to auscultation bilaterally Cardio Jugular venous pressure: no JVD Palpation: normal PMI Rate: tachycardic Rhythm: abnormal rhythm Heart Sounds: S1 normal and murmur systolic GI Palpation: soft Auscultation: normoactive bowel sounds Skin General skin exam: no rashes or lesions noted Extrem General: normal to inspection and no clubbing, cyanosis or edema Psych Appearance: grossly normal Results Last Vital Signs Temp 36.4 C L 06/24/20 13:57 Pulse 125 H 06/24/20 14:34 Resp 20 06/24/20 14:34 BP 96/70 L 06/24/20 14:34 Pulse Ox 98 06/24/20 14:34 Labs Result diagrams: 06/24/20 06:49 06/24/20 01:45 Labs: Laboratory Results - last 24 hr 06/24/20 06/24/20 06/24/20 01:45 01:45 01:45 WBC 7.71 RBC 5.48 Hgb 16.4 Hct 50.7 H MCV 92.5 MCH 29.9 MCHC 32.3 RDW 15.3 H Plt Count 207 MPV 11.9 H Immature Gran % 0.1 Neutrophils % 65.3 Lymphocytes % 19.8 Monocytes % 10.5 Eosinophils % 3.1 Basophils % 1.2 Nucleated RBC % 0 Absolute Neutrophils 5.03 Absolute Lymphocytes 1.53 Absolute Monocytes 0.81 H Absolute Eosinophils 0.24 Absolute Basophils 0.09 PT INR APTT Sodium 144 Potassium 3.7 Chloride 105 Carbon Dioxide 26.8 Anion Gap 12.2 H BUN 34 H Creatinine 1.7 H Estimated GFR/1.73 m2 39.28 Glucose 122 H Calcium 9.3 Magnesium 1.8 Total Bilirubin 1.1 H AST 30 ALT 69 H Alkaline Phosphatase 75 Troponin I 0.09 H* NT-Pro-B Natriuret Pep 3826 H Total Protein 7.5 Albumin 3.9 TSH 16.36 H Free T4 1.33 COVID-19 Source Nasopharyx SARS-CoV-2 (PCR) Negative 06/24/20 06/24/20 06/24/20 01:45 04:37 06:49 WBC RBC Hgb Hct MCV MCH MCHC RDW Plt Count MPV Immature Gran % Neutrophils % Lymphocytes % Monocytes % Eosinophils % Basophils % Nucleated RBC % Absolute Neutrophils Absolute Lymphocytes Absolute Monocytes Absolute Eosinophils Absolute Basophils PT 11.8 H INR 1.2 H APTT 27.6 H Sodium Potassium Chloride Carbon Dioxide Anion Gap BUN Creatinine Estimated GFR/1.73 m2 Glucose Calcium Magnesium Total Bilirubin AST ALT Alkaline Phosphatase Troponin I Cancelled 0.06 NT-Pro-B Natriuret Pep Total Protein Albumin TSH Free T4 COVID-19 Source SARS-CoV-2 (PCR) 06/24/20 06/24/20 06/24/20 06:49 06:49 12:25 WBC 6.29 RBC 5.13 Hgb 15.4 Hct 47.1 MCV 91.8 MCH 30.0 MCHC 32.7 RDW 15.3 H Plt Count 190 MPV 12.0 H Immature Gran % Neutrophils % Lymphocytes % Monocytes % Eosinophils % Basophils % Nucleated RBC % Absolute Neutrophils Absolute Lymphocytes Absolute Monocytes Absolute Eosinophils Absolute Basophils PT INR APTT Sodium Potassium Chloride Carbon Dioxide Anion Gap BUN Creatinine Estimated GFR/1.73 m2 Glucose Calcium Magnesium Total Bilirubin AST ALT Alkaline Phosphatase Troponin I 0.06 NT-Pro-B Natriuret Pep Total Protein Albumin TSH Free T4 1.39 COVID-19 Source SARS-CoV-2 (PCR)
[2020-06-24] MEDS: Digoxin 0.5 MG/2 ML AMP 0.125 MG IVP ×2 (15:51→21:31)
[2020-06-24] MEDS: Furosemide 20 MG/2 ML VIAL 10 MG IVP (16:02)
[2020-06-25] VITALS (42 sets, daily range): BP systolic 76–128; BP diastolic 52–107; PULSE 66–138; RESP 20–32; TEMP 36.1–36.7; O2SAT 86–98
[2020-06-25] MEDS: Digoxin 0.5 MG/2 ML AMP 0.125 MG IVP ×2 (04:22→09:17)
[2020-06-25 07:08] LABS: CREATININE 1.9 mg/dL (0.70-1.30); Calcium 8.6 mg/dL (8.5-10.1); Calculated LDL 80 mg/dL (<100); Chloride 103 mmol/L (98-107); Cholesterol 137 mg/dL (<200); Estimated GFR 34.55 (mL/min/1.73m2); Glucose 102 mg/dL (74-106); HDL Cholesterol 44 mg/dL (40-60); Potassium 3.8 mmol/L (3.5-5.1); Sodium 139 mmol/L (136-145); Triglyceride 67 mg/dL (<150)
[2020-06-25 07:32] LABS: BUN 44 mg/dL (7-18)
[2020-06-25] MEDS: levETIRAcetam 500 MG TAB PO ×2 (07:42→20:37)
[2020-06-25] MEDS: Apixaban 5 MG TAB PO ×2 (07:42→20:37)
[2020-06-25] MEDS: Aspirin E.C. 81 MG TABEC PO (07:42)
[2020-06-25] MEDS: Omeprazole 20 MG CAPCR PO (07:42)
[2020-06-25] MEDS: Allopurinol 300 MG TAB PO (07:42)
[2020-06-25 07:52] LABS: Hemoglobin A1C 5.1 % (<5.7)
--- NOTE | 2020-06-25 08:20 | W.PM.PROGNOT ---
Date of Service Date of service: 06/25/20 Time of Service: 12:05 Assessment and Plan Assessment and plan (1) Atrial fibrillation with rapid ventricular response: Status: Acute Assessment and plan: paroxysmal. Rate not controlled yet w/ digoxin. Did not tolerate even low doses of cardizem/metoprolol. At this point, cardioversion should be strongly considered. NPO after midnight with plans to cardiovert tomorrow. Continue anticoagulation. (2) Acute on chronic systolic CHF (congestive heart failure): Status: Acute Assessment and plan: BP slightly better today. Will do lasix gtt at 2.5 mg/hr to maximize success of cardioversion tomorrow. (3) Cardiomyopathy: Status: Acute Assessment and plan: EF 33%. Avoid CCB. As above (4) JEIMY on CPAP: Status: Chronic Assessment and plan: Hypoxic overnight possible due to poor fit of nasal pillows. RT aware and will be working with the patient. Hypoxia overnight may also have to do with fluid overload. Will monitor with diuresis and hopefully better fit of nasal pillows. (5) Seizure disorder: Status: Chronic Assessment and plan: Continue keppra. (6) Discharge planning issues: Status: Acute Assessment and plan: Full code. Keep in the ICU with plans to cardiovert tomorrow. Patient elected to stay at our facility when offered the choice of transfer to the [facility]. Total Critical Care Time 40 minutes. Subjective Subjective Interval history since last seen: Mr Medina feels well this morning. He denies dizziness, chest pain, shortness of breath, nausea. He states that he thinks he has been in Afib continuously for 3 weeks. He agrees to cardioversion. He would like to get it done here by an expert. I discussed the case with Dr Balderas yesterday who felt this would be appropriate and would not require a MELISSA prior. We will plan on doing this procedure tomorrow between 11 am - 12 pm at bedside. I have contacted anesthesia, who will be available. BP 110/67, HR 110s -130s. Needed 3L overnight with CPAP. Normally no O2 bleed in. Nursing thinks nasal pillows have a leak. O2 sats were in 70s without the O2 bleed in. On room air right now speaking with me, low 90s. Exam Narrative Exam Narrative: General: Pleasant male, sitting up in bed, A&Ox3, on room air, no dyspnea/tachypnea HEENT: EOMI, MMM Heart: irregularly irregular rhythm, HR in 110s - 120s at rest. Lungs: crackles at B lung bases, no improvement Abdomen: soft, nontender, nondistended Extremities: no edema Objective Last Vital Signs Temp 36.7 C 06/25/20 04:10 Pulse 94 H 06/25/20 05:01 Resp 21 06/25/20 05:01 BP 100/72 06/25/20 05:01 Pulse Ox 86 L 06/25/20 05:10 Laboratory Results - last 24 hr 06/24/20 06/24/20 06/24/20 06:49 06:49 12:25 Sodium Potassium Chloride Carbon Dioxide Anion Gap BUN Creatinine Estimated GFR/1.73 m2 Glucose Hemoglobin A1c Calcium Magnesium Troponin I 0.06 0.06 Triglycerides Total Cholesterol LDL Cholesterol, Calc HDL Cholesterol Free T4 1.39 06/25/20 06/25/20 06:05 06:05 Sodium 139 Potassium 3.8 Chloride 103 Carbon Dioxide 25.0 Anion Gap 11.0 BUN 44 H D Creatinine 1.9 H Estimated GFR/1.73 m2 34.55 Glucose 102 Hemoglobin A1c 5.1 Calcium 8.6 Magnesium 2.0 Troponin I Triglycerides 67 Total Cholesterol 137 LDL Cholesterol, Calc 80 HDL Cholesterol 44 Free T4
[2020-06-25] MEDS: Furosemide 20 MG/2 ML VIAL IVP (09:01)
--- NOTE | 2020-06-25 13:33 | PDOC.CMPRO ---
Care Management Progress Note S/O: [facility], opting instead to stay at [facility] for cardioversion. He will be made NPO after midnight for planned cardiovert tomorrow, per MD. He was sitting up on the side of his bed, finishing his dinner when CM met with him. He was talkative and engaged easily with this publicity writer, sharing hopes that cardioversion would be effective tomorrow as he reports feeling he has been low for over a month. He shares no additional concerns at this time and appears to enjoy talking about his life and travel plans with his current partner. CM continues to follow. A: 75 year old male admitted to [facility] 06/24/20 for AF/RVR, CHF P: Alonso will be made NPO after midnight for anticipated cardioversion tomorrow. He will likely return home when ready per MD. He will follow up with cardiology, his PCP and plan of care as prescribed. He will transport via private vehicle with his significant other.
--- NOTE | 2020-06-25 14:16 | PHA.REVIEW ---
Pharmacy Admission Review - Admission Clinical Review (Last Updated 06/24/20 @ 16:12 by Nadine Villanueva MD) Discharge planning issues (Acute) Acute on chronic systolic CHF (congestive heart failure) (Acute) Cardiomyopathy (Acute) Atrial fibrillation with rapid ventricular response (Acute) Dyspnea (Acute) No Known Allergies Allergy (Verified 06/24/20 01:40) Height 5 ft 11 in Weight 96.1 kg - Renal Dosing Renal Dosing: BUN 44 mg/dL (7-18) H D 06/25/20 06:05 Creatinine 1.9 mg/dL (0.70-1.30) H 06/25/20 06:05 Medications needing adjustments: Reviewed (eCrCl 34 ml/min, orders ok) - Anticoagulation Anticoagulation: Hgb 15.4 g/dL (13.5-17.5) 06/24/20 06:49 Hct 47.1 % (40.0-50.0) 06/24/20 06:49 Plt Count 190 10^3/uL (130-400) 06/24/20 06:49 INR 1.2 (0.9-1.1) H 06/24/20 01:45 Creatinine 1.9 mg/dL (0.70-1.30) H 06/25/20 06:05 Therapeutic Anticoagulation: Reviewed Medications: Apixaban - Opiate Usage Evaluate Pain Scale/Pains Meds: N/A - Relevant Labs Sodium 139 mmol/L (136-145) 06/25/20 06:05 Potassium 3.8 mmol/L (3.5-5.1) 06/25/20 06:05 Chloride 103 mmol/L (98-107) 06/25/20 06:05 Magnesium 2.0 mg/dL (1.8-2.4) 06/25/20 06:05 Electrolytes, C-Reactive P, ESR: Reviewed - DM Control DM Control: Glucose 102 mg/dL (74-106) 06/25/20 06:05 Hemoglobin A1c 5.1 % (<5.7) 06/25/20 06:05 Insulin Dosing: N/A - Heart Failure/CO Heart Failure/CO: Troponin I 0.06 ng/mL (<0.06) 06/24/20 12:25 NT-Pro-B Natriuret Pep 3826 pg/mL (<300) H 06/24/20 01:45 EF%, UZAIR's, B-Blockers, Diuretics: Reviewed (EF 33%, dilt and metoprolol have been dc'd for now and digoxin load started due to low BP and uncontrolled HR, cardioversion will be performed tomorrow as HR remains uncontrolled despite digoxin) - BP Control BP Control: Blood Pressure 100/72 Blood Pressure 88/63 Blood Pressure 88/63 Blood Pressure 94/58 If elevated: Reviewed - Qtc Review If Elevated: Reviewed (462 on admission) - IV to PO Switch IV Medications: Reviewed - Home Meds Home Med List reviewed: Reviewed Relevent Home Meds Not ordered & why?: amlodipine, HCTZ, losartan -- low SBPs (restart once diuresed if BP allows) - Current meds Current Medication Order Review: Reviewed (lasix drip started at 2.5mg/hr, cardioversion planned for tomorrow, expect addition of metoprolol q6h and restared of losartan +/- hctz)
[2020-06-26] VITALS (74 sets, daily range): BP systolic 95–134; BP diastolic 43–100; PULSE 59–175; RESP 14–31; TEMP 36–36.8; O2SAT 83–98
[2020-06-26 06:39] LABS: Anion Gap 6.9 mmol/L (3-11); BUN 40 mg/dL (7-18); CO2 30.1 mmol/L (21.0-32.0); CREATININE 1.5 mg/dL (0.70-1.30); Calcium 8.9 mg/dL (8.5-10.1); Chloride 103 mmol/L (98-107); Estimated GFR 45.38 (mL/min/1.73m2); Glucose 101 mg/dL (74-106); Magnesium 1.6 mg/dL (1.8-2.4); Potassium 3.1 mmol/L (3.5-5.1); Sodium 140 mmol/L (136-145)
[2020-06-26] MEDS: Apixaban 5 MG TAB PO ×2 (08:06→20:22)
[2020-06-26] MEDS: levETIRAcetam 500 MG TAB PO ×2 (08:06→20:23)
[2020-06-26] MEDS: Omeprazole 20 MG CAPCR PO (08:06)
[2020-06-26] MEDS: Aspirin E.C. 81 MG TABEC PO (08:06)
[2020-06-26] MEDS: Allopurinol 300 MG TAB PO (08:06)
--- NOTE | 2020-06-26 08:45 | W.PM.PROGNOT ---
Date of Service Date of service: 06/26/20 Time of Service: :21 Assessment and Plan Assessment and plan (1) Atrial fibrillation with rapid ventricular response: Status: Resolved Assessment and plan: paroxysmal. S/p cardioversion. No plan to initiate amiodarone/antiarrhythmic therapy at this time. Continue digoxin for now. Continue to monitor in the ICU. Continue anticoagulation. (2) Acute on chronic systolic CHF (congestive heart failure): Status: Acute Assessment and plan: Tolerating lasix gtt. Continue. Replete and monitor lytes. (3) Cardiomyopathy: Status: Chronic Assessment and plan: EF 33%. Avoid CCB. As above (4) JEIMY on CPAP: Status: Chronic Assessment and plan: Hypoxic overnight possible due to poor fit of nasal pillows. Hypoxia overnight may also have to do with fluid overload. Will monitor with diuresis and hopefully better fit of nasal pillows. (5) Seizure disorder: Status: Chronic Assessment and plan: Continue keppra. (6) Discharge planning issues: Status: Acute Assessment and plan: Full code. Keep in the ICU. Total Critical Care Time 40 minutes. Subjective Subjective Interval history since last seen: S/p successful cardioversion this am. HR now in the 90s - NSR. 5 beat run of vtach post cardioversion. Patient is still waking up from anesthesia. So far he stated that he feels good and does not remember the event. He is too sleepy to talk to me otherwise. Remains on lasix gtt. Slept well with CPAP 2L bleed in. 95% all night. 1700 out . - 2.5 kg overnight. HR 100s-110s, up to 120 with activity or when taking a phone call. 140s with ambulation (standing to void). SBP low 100s. MAP>65. Exam Narrative Exam Narrative: General: male laying flat in bed, recovering from anesthesia, arousable HEENT: EOMI, MMM Heart: RRR, HR 90s Lungs: crackles at B lung bases Abdomen: soft, nontender, nondistended Extremities: no edema Objective Last Vital Signs Temp 36.5 C 06/26/20 03:56 Pulse 105 H 06/26/20 04:01 Resp 14 06/26/20 04:01 BP 105/80 06/26/20 04:01 Pulse Ox 96 06/26/20 04:01 Laboratory Results - last 24 hr 06/26/20 06:07 Sodium 140 Potassium 3.1 L Chloride 103 Carbon Dioxide 30.1 Anion Gap 6.9 BUN 40 H Creatinine 1.5 H Estimated GFR/1.73 m2 45.38 Glucose 101 Calcium 8.9 Magnesium 1.6 L
[2020-06-26] MEDS: Potassium Chloride 20 MEQ TABCR 40 MEQ PO (09:00)
[2020-06-26] MEDS: MAGNESIUM SULFATE 4 GM/100 ML BAG IVPB (09:01)
[2020-06-26] MEDS: Digoxin 0.125 MG TAB PO (09:02)
[2020-06-26] MEDS: POTASSIUM CHLORIDE 20 MEQ/100 ML BAG 50 MEQ IVPB ×2 (09:02→13:33)
[2020-06-26] MEDS: Potassium Chloride 20 MEQ TABCR PO (09:02)
--- NOTE | 2020-06-26 10:00 | RT.EKG_ITS ---
APPROVED REPORT Exam: Resting ECG Patient Location: I HR:113 bpm ECG Measurements Heart Rate 113 AXIS OK [id number] P [id number] QRSd 91 QRS 30 QT 351 T 19 QTc 482 Conclusion Atrial fibrillation...? atrial activity Low voltage, extremity leads...all extremity leads <0.5mV
--- NOTE | 2020-06-26 10:03 | PDOC.CMPRO ---
- If Service Date Differs Date of service: 06/26/20 Time of Service: 10:03 Care Management Progress Note S/O: Alonso was lying in bed when CM met with him. He stated that his cardioversion was successful this morning and that his heart rate is in the mid-eighties as opposed to 120-140 as it had been. He appeared to be in good spirits and shared that he anticipates being able to discharge home tomorrow. He continues to deny the need for services at home. A: 75 year old male admitted to [facility] 06/24/20 for AF/RVR, CHF P: Alonso will be made NPO after midnight for anticipated cardioversion tomorrow. He will likely return home when ready per MD. He will follow up with cardiology, his PCP and plan of care as prescribed. He will transport via private vehicle with his significant other.
--- NOTE | 2020-06-26 11:15 | RT.EKG_ITS ---
APPROVED REPORT Exam: Resting ECG Patient Location: I HR:85 bpm ECG Measurements Heart Rate 85 AXIS NC 95 P 0 QRSd 91 QRS 13 QT 376 T 34 QTc 448 Conclusion Sinus rhythm...normal P axis, V-rate 60- 99
--- NOTE | 2020-06-26 11:20 | W.CARDVER ---
Date of service: 06/26/20 Time of Service: 11:20 Cardioversion The patient was consented for electrical cardioversion. The patient was confirmed to be in atrial fibrillation. The patient was sedated with the help of anesthesia. One 200 J synchronized shock was given. Normal sinus rhythm was confirmed. The patient had multiple self resolving brief runs of NSVT during induction. There were no recurrent episodes after cardioversion. The patient tolerated the procedure well and is recovering in his intensive care unit bed.
--- NOTE | 2020-06-26 11:33 | NUR.NOTE ---
1000 I coordinated a cardioversion time of 1100 with the following: Dr. Balderas, Dr. Villanueva, Shane Mendez RT, Renetta Cross Nursing [employer] B[employer] Developer, Nick Preston CRNA, Stephanie GUIDRYN, and Prabhakar CAMPBELL. Airway and suction set-up, IV lines set-up and 2 patent sites verified, pads placed, EKG completed, MDs aware of low K+ and Mag being replaced, pre-VS recorded, and weight and height verified, patient on anticoagulants, metal removed, no dentures or hearing aids present. Consents obtained by anesthesia and Dr. Balderas after extensive explanation of the procedure and the risks. Patient states no further questions and gave written and verbal consent. Time out completed by Kobe Preston CRNA. Lidocaine and Propofol administered by [employer] WIRE FINISHER Student with Nick Preston CRNA present. Patient sedation achieved. Multiple runs of self-correcting NSVT present during sedation. Dr. Balderas administered synchronized shock of 200 joules at 1115. Patient confirmed to be in sinus rhythm. Patient maintained airway with no BVM or devices. Oxymask in place. Patient awakened and answering questions by 1118. VS stable. post-EKG completed. Patient requesting to watch TV. Nursing Note:
--- NOTE | 2020-06-26 13:35 | CHAPLAIN ---
Alonso had a cardioversion this morning that went well. His friend is here visiting now. Alonso had time for a short conversation before the procedure. He joked that an acquaintance said she had the same procedure and the cardioversion only lasted for 10 seconds. Alonso said he hasn't been feeling well for a while and first affected his breathing. He was looking forward to having the cardioversion completed.
[2020-06-26] MEDS: Normal Saline Flush 10 ML SYR IVP (14:19)
--- NOTE | 2020-06-26 17:40 | RESPIRATORY ---
RT present for conscious sedation cardiovert. Suction, nasal canula, oxymask and ambu bag set up at [facility]. Pt placed on 5lpm NC and 10 by oxymask. Pt was Cardioverted without incident and was titrated to room air post conscious sedation.
[2020-06-27] VITALS (19 sets, daily range): BP systolic 100–135; BP diastolic 51–73; PULSE 52–117; RESP 16–26; TEMP 36–36.3; O2SAT 92–100
--- NOTE | 2020-06-27 03:01 | NUR.NOTE ---
0000- pt having reperfusion arrhythmias but complletely asymptomatic. Had seven beat run of VT. then returned to sinus arrhythmia with occasional pvc. aware of arrhythmias. (Dr Villanueva was notified by Matthew Holt RN)
[2020-06-27 07:05] LABS: Anion Gap 6.3 mmol/L (3-11); BUN 33 mg/dL (7-18); CO2 31.7 mmol/L (21.0-32.0); CREATININE 1.4 mg/dL (0.70-1.30); Calcium 8.9 mg/dL (8.5-10.1); Chloride 104 mmol/L (98-107); Estimated GFR 49.14 (mL/min/1.73m2); Glucose 97 mg/dL (74-106); Magnesium 1.9 mg/dL (1.8-2.4); Potassium 3.3 mmol/L (3.5-5.1); Sodium 142 mmol/L (136-145)
--- NOTE | 2020-06-27 08:20 | W.PM.PROGNOT ---
Subjective Subjective Interval history since last seen: Asymptomatic Vtach while asleep up to 10 beats; otherwise, shorter burstst and PVCs. Still in NSR at baseline. O2 requirement overnight - 1 L on CPAP. Requests CPAP settings to be changed. BP 120/52. MAP 71. HR 77. O2 sat on CPAP at 1 L. UOP: 850 cc/8 hrs. On lasix gtt. Objective Last Vital Signs Temp 36.2 C L 06/27/20 03:56 Pulse 67 06/27/20 03:56 Resp 19 06/27/20 03:56 BP 110/64 06/27/20 03:56 Pulse Ox 98 06/27/20 03:56 Laboratory Results - last 24 hr 06/27/20 06:02 Sodium 142 Potassium 3.3 L Chloride 104 Carbon Dioxide 31.7 Anion Gap 6.3 BUN 33 H Creatinine 1.4 H Estimated GFR/1.73 m2 49.14 Glucose 97 Calcium 8.9 Magnesium 1.9
--- NOTE | 2020-06-27 08:38 | PDOC.CMDIS ---
LACE Index Scoring Tool - Questions: Length of Stay (in days): 3 Acuity (Admit via E.D.?): Yes E.D. Visits: 1 - Answers: Total Score: 7 Risk of Readmission: Low Risk Care Management Discharge Reason for Hospitalization: AF/RVR, CHF Discharge Plan: Alonso will discharge home with no additional services. He will follow up with his PCP and plan of care as prescribed. [facility] at MD request. Alonso will transport via private vehicle with his SO. Patient/Family Education Needs: Review discharge instructions, discuss Ask Me Three.
[2020-06-27] MEDS: Aspirin E.C. 81 MG TABEC PO (08:39)
[2020-06-27] MEDS: Digoxin 0.125 MG TAB PO (08:39)
[2020-06-27] MEDS: levETIRAcetam 500 MG TAB PO (08:40)
[2020-06-27] MEDS: Omeprazole 20 MG CAPCR PO (08:40)
[2020-06-27] MEDS: Allopurinol 300 MG TAB PO (08:40)
[2020-06-27] MEDS: Apixaban 5 MG TAB PO (08:40)
[2020-06-27] MEDS: Potassium Chloride 20 MEQ TABCR 40 MEQ PO ×2 (08:43→15:34)
[2020-06-27] MEDS: Docusate Sodium 100 MG CAP PO (12:14)
[2020-06-27] MEDS: Senna TAB 1 TAB PO (12:14)
[2020-06-27] MEDS: Bisacodyl 10 MG SUPP PR (12:14)
--- NOTE | 2020-06-27 13:35 | W.PM.DS.N ---
Date of service: 06/27/20 Time of Service: 13:38 DS: Diagnosis Discharge Diagnosis (1) Atrial fibrillation with rapid ventricular response: Status: Resolved Asessment and Plan: Cardioverted on 06/26/20 to NSR. (2) Acute on chronic combined systolic and diastolic CHF (congestive heart failure): Status: Resolved (3) Hypoxia: Status: Chronic (4) Cardiomyopathy: Status: Chronic Asessment and Plan: NICMO (5) JEIMY on CPAP: Status: Chronic Asessment and Plan: Needs repeat sleep titration study. (6) Pulmonary hypertension: Status: Chronic (7) Seizure disorder: Status: Chronic (8) Constipation: Status: Resolved (9) COVID-19 ruled out by laboratory testing: Status: Ruled-out Discharge Plan Disposition Patient Disposition: HOME Condition: Stable Discharge Details Reason For Visit: AF/RVR, CHF Admit Date/Time: 06/26/20 17:06 Admit Provider: Teddy Borjas Attending Provider: Teddy Borjas Primary Care Provider: Elsa Fuentes [facility] Course Hospital Course: Mr Medina is a 75 year old male with PMHx of paroxysmal afib on eliquis as well as h/o NICMO/chronic systolic CHF with EF of 33%, h/o diastolic dysfunction, and pulmonary hypertension, as well as essential hypertension, who was a patient on [facility] hospitalist service from 06/24/20 until 06/27/20 having presented with rapid Afib and acute exacerbation of his combined CHF. While in rapid Afib, he did not tolerate beta or calcium channel blockade, developing hypotension and limiting diuresis. Cardiology was consulted. The patient was switched over to digoxin, which did permit the bood pressure for effective diuresis with lasix drip. The patient required up to 3L of O2 by MS prior to diuresis, but now is doing well on room air. The patient remained in rapid Afib, however, until his successful cardioversion on 06/26/[address] Balderas at bedside in the ICU with conscious sedation by anesthesia. On discharge, Dr Balderas recommends trialing a beta nilda over digoxin. We will start toprol XL 25 mg PO daily. The patient is going home today with a cardiac event recorder. He will need to follow up with the [place] cardiology service as well as the [place] [facility] clinic for a repeat titration study as he feels his CPAP settings need to change. He is going home on lasix 40 mg daily. His amlodipine and HCTZ have been d/c'ed indefinitely. Losartan should be resumed as outpatient if his BP tolerates beta blockade. Bloodwork is recommended in 1 week. The patient did experience constipation while at our facility which resolved prior to discharge. He does not require oxygen as per ambulatory pulse ox measurement. Care for patient as well as completion of his discharge summary on day of discharge took 45 minutes. Home Meds and New Rx's Prescriptions: New sennosides [Senokot] 8.6 mg Tablet 1 tab PO BID Qty: 60 RF: 0 docusate sodium [Colace] 100 mg Capsule 100 mg PO BID Qty: 60 RF: 0 metoprolol succinate [Toprol XL] 25 mg tablet extended release 24 hr 25 mg PO DAILY Qty: 30 RF: 0 furosemide 40 mg tablet 40 mg PO QAM Qty: 30 RF: 0 potassium chloride 20 mEq tablet extended release 40 meq PO DAILY Qty: 60 RF: 0 magnesium oxide 400 mg (241.3 mg magnesium) tablet 400 mg PO DAILY Qty: 30 RF: 0 Continued acetaminophen 500 mg tablet 1,000 mg PO Q8H PRN (Reason: pain) Qty: 90 RF: 3 omeprazole 20 mg Capsule,Delayed Release(Dr/Ec) 20 mg PO DAILY RF: 0 levetiracetam [Keppra] 500 mg Tablet 500 mg PO BID RF: 0 allopurinol 300 mg Tablet 300 mg PO DAILY RF: 0 Eliquis 5 mg tablet 5 mg PO BID RF: 0 Discontinued potassium chloride 10 mEq Capsule, Extended Release 10 meq PO BID RF: 0 hydrochlorothiazide 50 mg Tablet 50 mg PO DAILY RF: 0 amlodipine 5 mg Tablet 5 mg PO HS RF: 0 losartan 100 mg Tablet 100 mg PO HS RF: 0 Discharge Instructions Instructions: Metoprolol (By mouth), Furosemide (By mouth), Heart Failure (DC), A-fib (Atrial Fibrillation) (DC), Cardioversion (DC) Additional Instructions: Return to the hospital with any fever, bleeding, chest pain, shortness of breath. Weigh yourself daily. Inform your PCP if you have gained >3lbs in 3 days. Follow a low salt diet. Follow up with your PCP in 1-2 weeks, with your traffic signal technician, and for a repeat sleep study. Referrals: Elsa Fuentes [Primary Care Provider] - Activity:: Activity as Tolerated Equipment/Supplies:: cardiac event recorder Diet:: Low Sodium Discharge Orders Discharge Orders: Discharge Order (Routine); Ordered 06/27/20 Ordered By: Nadine Villanueva Other Ambulatory Orders: Basic Metabolic Panel (Routine) Timeframe: 1 Week Location: Determined by Patient Ordered By: Nadine Villanueva Cardiac Event Recorder (Routine) Timeframe: 1 Day Facility: [facility] - Location: Respiratory Therapy Ordered By: Nadine Villanueva Magnesium (Routine) Timeframe: 1 Week Location: Determined by Patient Ordered By: Nadine Villanueva DS: Summary Time Spent with Patient providing and/or coordinating discharge services: Greater than 30 minutes Status at Discharge Functional status at discharge: independent ambulation Overall status at discharge: patient is back to baseline Mental Status: mental status grossly normal Speech and Movement: speech and movement normal Mood: congruent mood Affect: normal affect Exam Narrative Exam Narrative: General: male sitting up in a chair, looks well, on room air HEENT: EOMI, MMM Heart: RRR, occasional extra beat Lungs: faint crackles at B lung bases Abdomen: soft, nontender, nondistended Extremities: no edema Psych Mental Status: mental status grossly normal Speech and Movement: speech and movement normal Mood: congruent mood DS: Data Vitals/I&O Vitals and I&O: Vital Signs Temperature 36.3 C L 06/27/20 12:18 Temperature Source Temporal Artery Scan 06/27/20 12:18 Pulse 87 06/27/20 12:58 Pulse 87 06/27/20 12:58 Respiratory Rate 23 06/27/20 12:58 Respiratory Effort Non-Labored 06/27/20 12:18 Respiratory Depth Normal 06/27/20 12:18 Respiratory Pattern Normal 06/27/20 12:18 Blood Pressure 117/66 06/27/20 12:58 Blood Pressure Mean 78 06/27/20 12:58 Blood Pressure Position Supine 06/27/20 12:18 Pulse Oximetry 93 06/27/20 12:58 Respiratory End-tidal CO2 23 06/26/20 13:00 Oxygen Delivery Method Room Air 06/27/20 12:18 Oxygen Flow Rate 0 06/27/20 12:18 Fraction of Inspired Oxygen (FIO2) 06/27/20 09:50 Pain Level 0 06/27/20 12:18 Comment 06/24/20 22:00 Intake & Output 06/26/20 06/27/20 06/27/20 23:59 11:59 23:59 Intake Total 700 / 884 520 / 520 Output Total 1800 / 4500 950 / 1050 100 / 1050 Balance -1100 / -3616 -430 / -530 -100 / -530 Weight 92.5 kg Intake: IV 100 / 284 Oral 600 / 600 520 / 520 Output: Urine 1800 / 4500 950 / 1050 100 / 1050 Other: Urine Color Straw Yellow Urine Appearance Clear Clear Clear Urine Odor None Normal Normal Comment Patient voids in urinal. Mixed with formed stool. Stool Occult Blood Negative Stool Size Small Large Stool Characteristics Soft Formed Brown Voiding Methods Bedside Commode Data Completed and Pending Completed studies during hospitalization [Text1]: CXR 06/24/20: No evidence of acute process. Echo 06/24/20: Left Ventricle : The left ventricle is normal size. Left ventricular systolic function is moderately decreased. There is normal left ventricular wall thickness. There is global hypokinesis of the left ventricle. The left ventricular diastolic function is abnormal. LVEF is 33%. Right Ventricle : Right ventricle is grossly normal in size. Right ventricular systolic function is grossly normal. The RVSP is 33.3mmHg. Pacemaker lead is present in the right ventricle. Mitral Valve : Severe mitral annular calcification. The mobility of the posterior leaflet is significantly reduced. No evidence of mitral valve stenosis. Moderate mitral regurgitation. Mitral regurgitation jet is eccentrically directed. Great Vessels : The aortic root is normal in size. The ascending aorta is moderately dilated (4.0). Aortic arch is not well visualized. The IVC is dilated and collapses <50% with inspiration. Please see remainder of study for further details. Labs on day of discharge: Labs from last 24 hours 06/27/20 06:02 Sodium 142 Potassium 3.3 L Chloride 104 Carbon Dioxide 31.7 Anion Gap 6.3 BUN 33 H Creatinine 1.4 H Estimated GFR/1.73 m2 49.14 Glucose 97 Calcium 8.9 Magnesium 1.9 [facility] Medical History Combined congestive systolic and diastolic heart failure GERD (gastroesophageal reflux disease) Gout High cholesterol Hypertension JEIMY on CPAP Osteoarthritis Paroxysmal A-fib Pulmonary hypertension Seizure disorder No seizure activity >10yr Syncope Surgical History History of appendectomy History of cardiac catheterization History of cholecystectomy History of hernia repair History of permanent cardiac pacemaker placement Pacer/defib History of total left knee replacement (TKR) (01/30/19) Dr. Almanzar History of total right knee replacement 03/2018 Hx of surgical procedure Groin tumor removal Hx of tonsillectomy Social History Smoking/Tobacco Use Status: Never Smoking risk assessment performed?: Yes Alcohol Intake: current Alcohol Intake frequency: holidays/special occasions only Alcohol type: beer and hard liquor Drug use: Never Substance use type: does not use Current gender identity: male Do you feel safe at home: Yes Additional Social history: lives alone, son close by
[2020-06-27] MEDS: Furosemide 20 MG TAB PO (15:34)
--- NOTE | 2020-06-30 17:00 | RESPIRATORY ---
RT Received a call and fax from [employer] in regards to this Pt's 30 Cardiac Event Recorder. Repport Analysis shows: A-Fib RVR Sustained w.Run of V-Tach (9-18 Beats) PVC's (4in 1 min) Highest BPM 220. Report was given verbally to Boyd at [facility].
--- NOTE | 2020-07-02 17:59 | RESPIRATORY ---
[facility] called concerning the patient being admitted to the [facility]. Patient has been listed as critical on the [employer] 30 monitor site as of July 03 but is currently inpatient at his facility.
--- NOTE | 2020-07-28 08:54 | W.CARDEVENT ---
Date of service: 07/28/20 Time of Service: 08:54 Cardiac Event Recorder Referring Provider:: Pamela Indications:: Afib Cardiac Event Note: This is a 30-day event monitor order for indication of atrial fibrillation. Patient wore the monitor for a total of 22 days. ?The patient was in atrial fibrillation for a total of 67% of the time. Average heart rate was 90 bpm. ?There were multiple episodes of NSVT with the longest lasting 18 beats. ?There were rare PACs and rare PVCs. ?There were no pauses greater than 3 seconds and no evidence of high degree heart block. ?There were 4 manually triggered events associated with atrial fibrillation as well as atrial flutter.
== END 2020-06-27 16:30 | disposition home or self-care (01) | DRG 308 ==
LOC: ER 03:44 → ICU 06:29
PROVIDERS: Internal Medicine; Admitting Provider General Practice; Emergency Provider Emergency Medicine; PCP Family Medicine; Visit Provider General Practice
DX: I48.0 Paroxysmal atrial fibrillation (principal); I50.43 Acute on chronic combined systolic (congestive) and diastolic (congestive) heart failure; I24.8 Other forms of acute ischemic heart disease; R06.00 Dyspnea, unspecified; Z79.01 Long term (current) use of anticoagulants; K21.9 Gastro-esophageal reflux disease without esophagitis; E78.00 Pure hypercholesterolemia, unspecified; M10.9 Gout, unspecified; G47.33 Obstructive sleep apnea (adult) (pediatric); Z96.653 Presence of artificial knee joint, bilateral; M19.09 Primary osteoarthritis, other specified site; G40.909 Epilepsy, unspecified, not intractable, without status epilepticus; I42.9 Cardiomyopathy, unspecified; I11.0 Hypertensive heart disease with heart failure; Z95.0 Presence of cardiac pacemaker; R09.02 Hypoxemia; I27.20 Pulmonary hypertension, unspecified; Z20.822 Contact with and (suspected) exposure to COVID-19; K59.00 Constipation, unspecified
CPT/HCPCS: 92960; 36410; 36415; 80048; 80053; 80061; 85027; 87635; 93005; 93270; 93306; 94618; 96365; 96366; 96375; 96376; 99222; 99239; 99254; 99291; 71045; 83036; 83735; 83880; 84439; 84443; 84484; 85025; 85610; 85730; 93010; 99219; J1160; J1940; J1941; J2001; J2405; J2704; J3475; J3480; J3490

== ENCOUNTER → 2020-06-26 13:20 | Outpatient (BNVA) | payer MEDICARE, OTHER, SELFPAY | PROVIDERS: PCP Family Medicine; Referring Provider Family Medicine; Visit Provider Internal Medicine Cardiovascular Disease | DX: R69 Illness, unspecified (principal) ==

== ENCOUNTER 2020-07-01 08:09 | Outpatient (REF) | payer MEDICARE, OTHER, SELFPAY ==
[2020-07-01 13:38] LABS: Anion Gap 11.4 mmol/L (3-11); BUN 36 mg/dL (7-18); CO2 30.6 mmol/L (21.0-32.0); CREATININE 1.7 mg/dL (0.70-1.30); Calcium 9.4 mg/dL (8.5-10.1); Chloride 106 mmol/L (98-107); Estimated GFR 39.28 (mL/min/1.73m2); Glucose 112 mg/dL (74-106); Potassium 4.5 mmol/L (3.5-5.1); Sodium 148 mmol/L (136-145)
--- NOTE | 2020-07-02 14:55 | RESPIRATORY ---
RT Received a call and fax from [employer] in regards to this Pt's 30 Cardiac Event Recorder. Report Analysis shows: A-Fib RVR Sustained w.Run of V-Tach (7 Beats) AT RATE OF 150 BPM. Report was given verbally to Ashlie Yoo RN at [facility].
--- NOTE | 2020-07-09 09:42 | RESPIRATORY ---
07/09/20 @ 9:10am Contacted Pt's PCP office at [facility] and spoke with KEN Brooks to report Pt's Critical Event of AFib sustained with Couplet PV's (7 in 1 min)/ Run of V-tach (3-9 beats).
--- NOTE | 2020-07-13 12:00 | RESPIRATORY ---
RT recieved a faxed concerning serious event with patient's [facility] 30 day Cardiac Event Recorder. RT reported and took papers concerning the serious events to Nursing Client Success Manager, Lluvia Huston. Lluvia Huston then stated she would call the on-call car cooper to make sure he knew about reports and findings. Rt did not talk to on-call car cooper personally as Nursing Client Success Manager stated she would.
== END 2020-07-01 08:10 | disposition home or self-care (01) ==
LOC: NCHCN 08:09
PROVIDERS: PCP Family Medicine; Visit Provider Family Medicine
DX: I50.43 Acute on chronic combined systolic (congestive) and diastolic (congestive) heart failure (principal)
CPT/HCPCS: 80048; 83735